=== PATIENT | male | born 1975 | race Caucasian/White ===

== ENCOUNTER → 2024-10-11 19:30 | Outpatient (REF) | payer OTHER, SELFPAY ==
--- OUTSIDE RECORDS SUMMARY | 2024-10-11 21:14 | XMS_ITS | Continuity of Care Document ---
Author Name [facility] Organization [facility] Care Team Providers Care [id number] Software Engineer Name Role Phone [facility] Unavailable Unavailable Problems Combined list of problems from Department of Defense and Veterans Affairs facilities. It does not include entries that were removed or entered in error. Problem Status Onset Date Problem Type Date of Resolution Comments Source Allergies Active Condition Jan 13 Entered By: PRASHANTH DOBSON Comment: Childhood asthma too. [place] Bilateral inguinal hernia, without mention of obstruction or gangrene Active Condition December 13, 2012 Entered By: CLARICE QUILES Comment: s/p repair age 1 [place] Dermatitis or Eczema Active Condition Jan 13, 2009 Entered By: PRASHANTH DOBSON Comment: Hands [place] Essential hypertension Active Condition [facility] Exposure to potentially hazardous substance Active Condition Oct 16, 2023 Entered By: JESSICA MARIE EN Alicia Comment: Connect Snomed Code to ICD 10 Code refer to note dated 06/02/23 [facility] Generalized anxiety disorder Active Condition [facility] Hypercholesterolemia Active Condition [facility] Hyperglycemia * (ICD-9-CM 790.29) Active Condition [facility] Hyperlipidemia Active Condition [facility] Hypertension [facility] Hypothyroidism Active Condition [facility] Knee Condition Active Condition Jan Entered By: PRASHANTH DOBSON Comment: Both knees from [place] [facility] Low back pain Active Condition [facility] Low Back Pain Active Condition Jan Entered By: PRASHANTH DOBSON Comment: Comes and goes. [place] Obesity Active Condition [facility] Paraesthesia Active Condition Mar 05, 2017 Entered By: CLARICE QUILES Comment: mri c-spine 02/24 no significant abnormalities and scanned into [facility] Rash and other nonspecific skin eruption Active Condition [facility] Sleep Apnea [facility] Tinea Active Condition Jan 13 Entered By: PRASHANTH DOBSON Comment: Multiple sites [facility] Tonsillectomy and Adenoidectomy (Under Age 12) Active Condition [facility] Vitamin D Deficiency (ICD-9-CM 268.9) [facility] Diagnosis: ICD-10-CM G89.29 Other chronic pain Active Diagnosis [facility] Diagnosis: ICD-10-CM F41.1 Generalized anxiety disorder Active Diagnosis [facility] Diagnosis: ICD-10-CM M54.50 Low back pain, unspecified Active Diagnosis [place] Diagnosis: ICD-10-CM E66.09 Other obesity due to excess calories Active Diagnosis [facility] Diagnosis: ICD-10-CM R05.3 Chronic cough [facility] Diagnosis: ICD-10-CM G47.30 Sleep apnea, unspecified Active Diagnosis [facility] Diagnosis: ICD-10-CM R06.83 Snoring Active [facility] Diagnosis: ICD-10-CM Z00.01 Encounter for general adult medical exam w abnormal findings Active Diagnosis [place] Diagnosis: ICD-10-CM I10 Essential (primary) hypertension Active Diagnosis [facility] Diagnosis: ICD-10-CM H52.03 Hypermetropia, bilateral Active Diagnosis [facility] Medications Combined list of outpatient medications from Department of Defense and Veterans Affairs facilities.Medications provided include 1) outpatient medications from the last 15 months, and 2) patient-reported medications. Medication Details Route Status Patient Instructions Prescription Expires Prescription Number Last Dispense Date Ordering Provider Order Date Order Qty Source ALBUTEROL 90MCG/ACTUA T (CFC-F) INHL,ORAL,8 .5GM DOSE COUNTER INHALE 2 PUFFS BY MOUTH FOUR TIMES DAILY NEEDED FOR ASTHMA ATTACK RESPIR ATORY (INHAL ATION) 08/27/2024 [id number] ANALIA QUILES 2023 1 [place] BUPROPION HCL 300MG 24HR TAB,SA TAKE ONE TABLET BY MOUTH ONCE DAILY ORAL ACTIVE ANALIA QUILES 2021 [place] CHOLECALCIF SANAZ 50MCG (2,000UNIT) TAB TAKE ONE TABLET BY MOUTH ONCE DAILY FOR VITAMIN SUPPLEME NTATION ORAL ACTIVE 05/08/2025 [id number] RA LAMINE ROACH 2023 100 [facility] FEXOFENADIN E HCL 180MG TAB TAKE ONE TABLET BY MOUTH ONCE DAILY ORAL ACTIVE ANALIA QUILES 2021 [place] FLUTICASONE PROPIONATE 50MCG/SPRAY SOLN,NASAL, 16GM INSTILL 2 SPRAYS INTO EACH NOSTRIL ONCE DAILY FOR NASAL IRRITATI ON/INFLA MMATION NASAL ACTIVE 05/04/2025 [id number] 4 MATTHEWRUBENLINARI O 2023 3 [facility] LEVOTHYROXI NE NA 175MCG TAB (SYNTHROID) TAKE TWO TABLETS BY MOUTH EVERY MORNING 30 MINUTES BEFORE BREAKFAS T FOR THYROID TAKE ON AN EMPTY STOMACH WITH A FULL GLASS OF WATER ORAL ACTIVE 05/04/2025 [id number] 4 MATTHEWJONIARI O 2023 180 [place] LEVOTHYROXI NE NA 175MCG TAB (SYNTHROID) TAKE TWO TABLETS BY MOUTH EVERY MORNING 30 MINUTES BEFORE BREAKFAS T ORAL ACTIVE NAALIA QUILES 2021 [place] LIDOCAINE 5% PATCH APPLY 1 PATCH TOPICALL Y ONCE DAILY NEEDED FOR NERVE PAIN (LEAVE PATCH ON FOR 12 HOURS, THEN REMOVE PATCH) TOPICA L ACTIVE 05/04/2025 [id number] 4 MATTHEWDARYL O 2023 90 [facility] MULTIVITAMI N W/MINERAL TAB TAKE BY MOUTH ONCE DAILY ORAL ACTIVE ANALIA QUILES 2020 [facility] OMEPRAZOLE 20MG CAP,EC TAKE ONE CAPSULE BY MOUTH EVERY MORNING 30 MINUTES BEFORE BREAKFAS T FOR GASTROES OPHAGEAL REFLUX DISEASE ORAL ACTIVE 09/07/2025 [id number] DECEM[place] P 2024 90 [facility] OTHER CAP/TAB TAKE ALLERGY MED BY MOUTH ONCE DAILY ORAL ACTIVE ANALIA QUILES 2020 [facility] OTHER CAP/TAB TAKE AMLODIPI NE 10MG/OLM ESARTAN 20MG BY MOUTH ONCE DAILY ORAL ACTIVE ANALIA QUILES 2023 [facility] SILDENAFIL CITRATE 100MG TAB TAKE ONE TABLET BY MOUTH ONCE DAILY NEEDED FOR ERECTILE DYSFUNCT ION TAKE 1 HOUR PRIOR TO SEXUAL ACTIVITY ORAL ACTIVE 05/04/2025 [id number] 4 MATTHEWRUBEN DENSONLINARI O 2023 18 [place] TRAZODONE HCL 100MG TAB TAKE ONE-HALF TABLET BY MOUTH AT BEDTIME NEEDED FOR INSOMNIA ASSOCIAT ED WITH DEPRESSI ON ORAL ACTIVE 05/04/2025 [id number] 4 MATTHEWRUBEN DENSONLINARI O 2023 90 [place] TRAZODONE HCL 100MG TAB TAKE ONE-HALF TABLET BY MOUTH AT BEDTIME NEEDED FOR INSOMNIA ASSOCIAT ED WITH DEPRESSI ON ORAL DISCONT INUED (EDIT) 09/03/2024 [id number] ANALIA QUILES 2023 15 [place] ZINC 50MG (FROM SULFATE) CAP TAKE 1 CAPSULE BY MOUTH ONCE DAILY ORAL ACTIVE ANALIA QUILES 2021 [place] Immunizations Combined list of available immunizations from the Department of Defense and Veterans Affairs facilities. Immunization Series Date Given Administered By Site Reaction Lot Number CVX Code Drug Toucher Up Status Comments Source INFLUENZA, SPLIT VIRUS, TRIVALENT, PF 2023 JAZ ROD RIGHT DELTO ID [id number] 140 complet ed [place] INFLUENZA, INJECTABLE, QUADRIVALENT, PRESERVATIVE FREE 2021 150 complet ed [facility] INFLUENZA, SEASONAL, INJECTABLE [address] t [facility] FLU,3 YRS (HISTORICAL) 2015 [address] complet ed [address] office (employer ) [facility] DTAP, UNSPECIFIED FORMULATION 2015 107 complet ed [place] FLU,3 YRS (HISTORICAL) 2015 88 complet ed [place] FLU,3 YRS (HISTORICAL) 2008 88 complet ed Site: Right Deltoid [place] Results Combined list of recent chemistry, hematology and other laboratory results from Department of Defense and Veterans Affairs, ranging from 15 months to all on record, depending upon the facility. Order Name Results Value Reference Range Date Interpretation Specimen Comments Source FAITH-65 Ab (Quest) GLUTAMATE DECARBOXYLA SE 65 AB [UNITS/VOLU ME] IN SERUM <5[IU] /mL 10/06 Specimen Type: SERUM Comment: REFERENCE RANGE: <5 IU/mL This test was performed using the GAD65 NALDO method, which is standardize d against the [facility] reference preparation 97/550. Test Performed by [employer], [employer] [facility], [address] [place] [address] Tre Bahena M.D., Ph.D., Director of Laboratorie s , CLIA [id number] TEST PERFORMED AT: , Ordering Provider: ORIN FLORES Report Released Date/Time: Jul 15, 2024 01:43 PM Reporting Lab: [facility] [place] [facility] [address] [facility] [address] Performing Lab: [facility] [place] [facility] [address] [address] [facility] THYROID T4 FREE(FT4) (WROX) THYROXINE (T4) FREE [MASS/VOLUM E] IN SERUM OR PLASMA 2.44 ng/dL 0.6 - 1.6 10/06 H Specimen Type: SERUM No comment entered. Ordering Provider: ORIN FLORES Report Released Date/Time: Jul 15, 2024 01:44 PM Reporting Lab: [facility] [place] [facility] [address] [facility] [address] Performing Lab: [facility] [place] [facility] [address] [facility] [address] [facility] VITAMIN B12 COBALAMIN (VITAMIN B12) [MASS/VOLUM E] IN SERUM OR PLASMA 373 pg/mL 200 - 900 10/06 Specimen Type: SERUM No comment entered. Ordering Provider: ORIN FLORES Report Released Date/Time: Jul 15, 2024 01:44 PM Reporting Lab: [facility] [place] [facility] [address] [facility] [address] Performing Lab: [facility] [place] [facility] [address] [facility] [address] [facility] TSH THYROTROPIN [UNITS/VOLU ME] IN SERUM OR PLASMA <0.06u [IU]/m L 0.35 - 5.00 10/06 L Specimen Type: SERUM No comment entered. Ordering Provider: ORIN FLORES Report Released Date/Time: Jul 15, 2024 01:44 PM Reporting Lab: [facility] [address] [facility] [address] Performing Lab: [facility] [address] [facility] [address] [facility] THYROID T4 FREE(FT4) (WROX) THYROXINE (T4) FREE [MASS/VOLUM E] IN SERUM OR PLASMA 1.02 ng/dL 0.6 - 1.6 07/12 Specimen Type: SERUM No comment entered. Ordering Provider: ORIN FLORES Report Released Date/Time: Jul 11, 2024 03:15 PM Reporting Lab: [facility] [address] [facility] [address] Performing Lab: [facility] [address] [facility] [address] [facility] BASIC METABOLIC PANEL (non-fast ing) UREA NITROGEN [MASS/VOLUM E] IN SERUM OR PLASMA 10 mg/dL 7 - 25 07/12 Specimen Type: SERUM No comment entered. Ordering Provider: ORIN FLORES Report Released Date/Time: Jul 11, 2024 03:14 PM Reporting Lab: [facility] [address] [facility] [address] Performing Lab: [facility] [address] [facility] [address] [facility] BASIC METABOLIC PANEL (non-fast ing) GLUCOSE [MASS/VOLUM E] IN SERUM OR PLASMA 126 mg/dL 65 - 100 07/12 H Specimen Type: SERUM No comment entered. Ordering Provider: ORIN FLORES Report Released Date/Time: Jul 11, 2024 03:14 PM Reporting Lab: [facility] [address] [facility] [address] Performing Lab: [facility] [address] [place] [address] [facility] BASIC METABOLIC PANEL (non-fast ing) SODIUM [MOLES/VOLU ME] IN SERUM OR PLASMA 137 mmol/L 135 - 145 07/12 Specimen Type: SERUM No comment entered. Ordering Provider: ORIN FLORES Report Released Date/Time: Jul 11, 2024 03:14 PM Reporting Lab: [facility] [address] [facility] [address] Performing Lab: [facility] [address] [facility] [address] [facility] BASIC METABOLIC PANEL (non-fast ing) POTASSIUM [MOLES/VOLU ME] IN SERUM OR PLASMA 4.0 mmol/L 3.5 - 5.0 07/12 Specimen Type: SERUM No comment entered. Ordering Provider: ORIN FLORES Report Released Date/Time: Jul 11, 2024 03:14 PM Reporting Lab: [facility] [address] [facility] [address] Performing Lab: [facility] [address] [facility] [address] [facility] BASIC METABOLIC PANEL (non-fast ing) CHLORIDE [MOLES/VOLU ME] IN SERUM OR PLASMA 102 mmol/L 100 - 110 07/12 Specimen Type: SERUM No comment entered. Ordering Provider: ORIN LFORES Report Released Date/Time: Jul 11, 2024 03:14 PM Reporting Lab: [facility] [address] [facility] [address] Performing Lab: [facility] [address] [address] [facility] BASIC METABOLIC PANEL (non-fast ing) CARBON DIOXIDE, TOTAL [MOLES/VOLU ME] IN SERUM OR PLASMA 21 meq/L 20 - 30 07/12 Specimen Type: SERUM No comment entered. Ordering Provider: ORIN FLORES Report Released Date/Time: Jul 11, 2024 03:14 PM Reporting Lab: [facility] [address] [facility] [address] Performing Lab: [facility] [address] [facility] [address] [facility] BASIC METABOLIC PANEL (non-fast ing) CREATININE [MASS/VOLUM E] IN SERUM OR PLASMA 1.00 mg/dL 0.50 - 1.40 07/12 Specimen Type: SERUM No comment entered. Ordering Provider: ORIN FLORES Report Released Date/Time: Jul 11, 2024 03:14 PM Reporting Lab: [facility] [address] [address] Performing Lab: [facility] [address] [address] [facility] BASIC METABOLIC PANEL (non-fast ing) GLOMERULAR FILTRATION RATE/1.73 SQ M.PREDICTED [VOLUME RATE/AREA] IN SERUM, PLASMA OR BLOOD BY CREATININE- BASED FORMULA (CKD-EPI 2020) >90mL/ min 60 07/12 Specimen Type: SERUM No comment entered. Ordering Provider: ORIN FLORES Report Released Date/Time: Jul 11, 2024 03:14 PM Reporting Lab: [facility] [address] [address] Performing Lab: [address] [address] [facility] TESTOSTER ONE, TOTAL (WHV) TESTOSTERON E [MASS/VOLUM E] IN SERUM OR PLASMA 215.95 ng/dL 220.00 - 892.00 07/12 L Specimen Type: SERUM No comment entered. Ordering Provider: MARI CASTRO Report Released Date/Time: May 03, 2024 02:57 PM Reporting Lab: [facility] [address] [address] Performing Lab: [facility] [address] [address] [facility] TSH THYROTROPIN [UNITS/VOLU ME] IN SERUM OR PLASMA 5.59 u[IU]/ mL 0.35 - 5.00 07/12 H Specimen Type: SERUM No comment entered. Ordering Provider: MARI CASTRO Report Released Date/Time: May 03, 2024 02:54 PM Reporting Lab: [facility] [address] [facility] [address] Performing Lab: [facility] [address] [facility] [address] [facility] VITAMIN D 25-OH (Therapy monitor) 25-HYDROXYV ITAMIN D3 [MASS/VOLUM E] IN SERUM OR PLASMA 32 ng/mL 30 - 100 07/12 Specimen Type: SERUM Comment: Vitamin D, 25-Hydroxy reports concentrati ons of two common forms, 25-OHD2 and 25-OHD3. 25-OHD3 indicates both endogenous production and supplementa tion. 25-OHD2 is an indicator of exogenous sources such as diet or supplementa tion. Therapy is based on measurement of Total 25-OHD, with levels <20 ng/mL indicative of Vitamin D deficiency, while levels between 20 ng/mL and 30 ng/mL suggest insufficien cy. Optimal levels are > or = 30 ng/mL. For additional information , please refer to http://educ ation.[facility] .GridBridge/faq/FA Q199 (This link is being provided for information al/ educational purposes only.) This test was developed and its analytical performance characteris tics have been determined by [place]. It has not been cleared or approved by the U.S. Food and Drug Administrat [employer]. This assay has been validated pursuant to the CLIA regulations and is used for clinical purposes. This test was developed and its analytical performance characteris tics have been determined by [place]. It has not been cleared or approved by the U.S. Food and Drug Administrat [employer]. This assay has been validated pursuant to the CLIA regulations and is used for clinical purposes. Test Performed by [facility], [place] [facility], [address] [place], [place] Tre Bahena M.D., Ph.D., Director of Laboratorie s , CLIA [id number] TEST PERFORMED AT: , Ordering Provider: MARI CASTRO Report Released Date/Time: May 03, 2024 02:46 PM Reporting Lab: [facility] [address] [facility] [address] Performing Lab: [facility] [address] [address] [facility] VITAMIN D 25-OH (Therapy monitor) 25-HYDROXYV ITAMIN D3 [MASS/VOLUM E] IN SERUM OR PLASMA 32 ng/mL 07/12 Specimen Type: SERUM Comment: Vitamin D, 25-Hydroxy reports concentrati ons of two common forms, 25-OHD2 and 25-OHD3. 25-OHD3 indicates both endogenous production and supplementa tion. 25-OHD2 is an indicator of exogenous sources such as diet or supplementa tion. Therapy is based on measurement of Total 25-OHD, with levels <20 ng/mL indicative of Vitamin D deficiency, while levels between 20 ng/mL and 30 ng/mL suggest insufficien cy. Optimal levels are > or = 30 ng/mL. For additional information , please refer to http://educ ation.[employer] .com/faq/FA Q199 (This link is being provided for information al/ educational purposes only.) This test was developed and its analytical performance characteris tics have been determined by [place] [place]. It has not been cleared or approved by the U.S. Food and Drug Administrat ion. This assay has been validated pursuant to the CLIA regulations and is used for clinical purposes. This test was developed and its analytical performance characteris tics have been determined by [place], [place]. It has not been cleared or approved by the U.S. Food and Drug Administrat ion. This assay has been validated pursuant to the CLIA regulations and is used for clinical purposes. Test Performed by [facility], [place], [address] [place], [place] Tre Bahena M.D., Ph.D., Director of Laboratorie s , CLIA [id number] TEST PERFORMED AT: , Ordering Provider: MARI CASTRO Report Released Date/Time: May 03, 2024 02:46 PM Reporting Lab: [facility] [address] [facility] [address] Performing Lab: [facility] [address] [address] [facility] VITAMIN D 25-OH (Therapy monitor) CALCIFEROL (VIT D2) [MASS/VOLUM E] IN SERUM OR PLASMA <4ng/m L 07/12 Specimen Type: SERUM Comment: Vitamin D, 25-Hydroxy reports concentrati ons of two common forms, 25-OHD2 and 25-OHD3. 25-OHD3 indicates both endogenous production and supplementa tion. 25-OHD2 is an indicator of exogenous sources such as diet or supplementa tion. Therapy is based on measurement of Total 25-OHD, with levels <20 ng/mL indicative of Vitamin D deficiency, while levels between 20 ng/mL and 30 ng/mL suggest insufficien cy. Optimal levels are > or = 30 ng/mL. For additional information , please refer to http://educ ation.[facility] .com/faq/FA Q199 (This link is being provided for information al/ educational purposes only.) This test was developed and its analytical performance characteris tics have been determined by [place]. It has not been cleared or approved by the U.S. Food and Drug Administrat ion. This assay has been validated pursuant to the CLIA regulations and is used for clinical purposes. This test was developed and its analytical performance characteris tics have been determined by [place], [place]. It has not been cleared or approved by the U.S. Food and Drug Administrat [employer]. This assay has been validated pursuant to the CLIA regulations and is used for clinical purposes. Test Performed by [facility], [place], [address] [place], [place] Tre Bahena M.D., Ph.D., Director of Laboratorie s , CLIA [id number] TEST PERFORMED AT: , Ordering Provider: MARI CASTRO Report Released Date/Time: May 03, 2024 02:46 PM Reporting Lab: [facility] [place] [facility] [address] [facility] [address] Performing Lab: [facility] [place] [facility] [address] [facility], [address] [place] [address] [place] [facility] HEMOGLOBI N A1C PANEL HEMOGLOBIN A1C/HEMOGLO BIN.TOTAL IN BLOOD BY HPLC 5.8 4.0 - 5.6 04/30 H Specimen Type: BLOOD Comment: Values obtained from A1C measurement s can vary. For atypical A1C assays, a reported value of 7.0 could actually be between 6.72 and 7.28 if measured by a reference method. A reported value of 9.0 could actually be between 8.73 and 9.27. Ref: http://www. ngsp.org/[place] Pdata.asp Ordering Provider: BRIT QUILES Report Released Date/Time: Sep 03, 2023 02:55 PM Reporting Lab: [facility] [address] [facility] [address] Performing Lab: [facility] [address] [facility] [address] [facility] Vital Signs Combined list of inpatient and outpatient Vital Signs from Department of Defense and Veterans Affairs, ranging from 12 months to all on record, depending upon the facility. Vital Sign Value Date Comments Source SYSTOLIC BLOOD PRESSURE 138 09/06/19 25 14:43:00 [facility] [place] [facility] DIASTOLIC BLOOD PRESSURE 78 025 14:43:00 [facility] [place] [facility] PULSE OXIMETRY 98 09/06/2024 14:43:00 [facility] [place] [facility] WEIGHT 305.2 09/06/2024 14:43:00 [facility] [place] [facility] BMI 43 kg/m2 09/06/2024 14:43:00 [facility] PAIN 0 09/06/2024 14:43:00 [facility] HEIGHT 71 09/06/2024 14:43:00 [facility] PULSE 59 09/06/2024 14:43:00 [facility] RESPIRATION 20 09/06/2024 14:43:00 [facility] SYSTOLIC BLOOD PRESSURE 143 07/15/20 24 12:53:31 [facility] DIASTOLIC BLOOD PRESSURE 83 024 12:53:31 [facility] PULSE OXIMETRY 96 07/15/2024 12:53:31 [facility] WEIGHT 309 07/15/2024 12:53:31 [facility] BMI 43 kg/m2 07/15/2024 12:53:31 [facility] PAIN 4 07/15/2024 12:53:31 [facility] HEIGHT 71 07/15/2024 12:53:31 [facility] TEMPERATURE 98.1 07/15/2024 12:53:31 [facility] PULSE 77 07/15/2024 12:53:31 [facility] RESPIRATION 16 07/15/2024 12:53:31 [facility] SYSTOLIC BLOOD PRESSURE 130 05/03/20 24 14:20:53 [facility] DIASTOLIC BLOOD PRESSURE 89 024 14:20:53 [facility] PULSE OXIMETRY 96 05/03/2024 14:20:53 [facility] WEIGHT 324.6 05/03/2024 14:20:53 [facility] BMI 45 kg/m2 05/03/2024 14:20:53 [facility] PAIN 3 05/03/2024 14:20:53 [facility] HEIGHT 71 05/03/2024 14:20:53 [facility] TEMPERATURE 95.6 05/03/2024 14:20:53 [facility] PULSE 61 05/03/2024 14:20:53 [facility] RESPIRATION 22 05/03/2024 14:20:53 [facility] Encounters Combined list of: 1) Encounters from [facility] Affairs facilities going backup to the last 18 months, not all VA inpatient encounters are included; 2) Encounters from the Department of [facility] facilities going backup to 280 months. Location Location Details Encounter Type Encounter Number Reason For Visit Attending Provider ADM Date DC Date Status Disposition Source [facility] Outpatient Encounter [id number] 04/23 [facility] DETERMINE REFRACTIVE [place] [id number] Diagnos is: ICD-10- CM H52.03 Hyperme tropia, bilater al NGOC CASEY 04/29 [facility] Outpatient Encounter [id number] 06/02 [facility] Outpatient Encounter [id number] JOANNE QUILES 06/02 [facility] [place] O/P EST MOD 30-39 MIN [id number] Diagnos is: ICD-10- CM I10 Essenti al (primar y) hyperte nsion JOANNE QUILES 06/02 [place] [facility] Outpatient Encounter [id number] 06/04 [facility] Out[facility] Encounter [id number] 06/05 [facility] [place] Outpatient Encounter [id number] 06/09 [place] [facility] Outpatient Encounter [id number] 07/02 [facility] Out[facility] Encounter [id number] 07/14 [facility] Out[facility]counter [id number] 08/01 [facility] Out[facility] Encounter [id number] 08/20 [facility] [place] Out[place] Encounter [id number] 08/20 [place]/OP EST MAY X REQ PHY/QHP [id number] Diagnos is: ICD-10- CM I10 Essenti al (primar y) hyperte nsmarisabel ERIKA MENON 08/22 [place] O/P EST MOD 30 MIN [id number] Diagnos is: ICD-10- CM I10 Essenti al (primar y) hyperte nsion JOANNE QUILES MOHAN 09/03 [place] En[place] [id number] 09/18 [place] En[place] [id number] 09/19 [place] [facility] Out[facility] Encounter [id number] BEVERLEY MENARD 10/13 [facility] Out[facility] Encounter [id number] 10/15 [facility] Out[facility] Encounter [id number] 10/21 [facility] Out[facility] Encounter [id number] 11/13 [facility] Out[facility] Encounter [id number] 11/13 [facility] Out[facility] Encounter [id number] 11/27 [facility] Out[facility] Encounter [id number] MG HUERTAS 11/27 [facility] Out[facility] Encounter [id number] 12/09 [facility] Out[facility] Encounter [id number] 12/09 [facility] Out[facility] Encounter [id number] 12/16 [facility] Out[facility] Encounter [id number] 12/18 [facility] Out[facility] Encounter [id number] 12/28 [facility] [place] Out[place] Encounter [id number] 03/31 [facility] Out[facility] Encounter [id number] 03/31 [facility] [place] O/P EST MOD 30 MIN [id number] Diagnos is: ICD-10- CM Z00.01 Encount er for general adult medical exam w Alicia Houser 05/03 [facility] Out[facility] Encounter [id number]/07 [facility]counter [id number] 06/04 [facility] Out[facility] Encounter [id number] 1.06/08 [facility] [place] PSYTX W PT 60 MINUTES [id number] Diagnos is: ICD-10- CM G89.29 Other chronic pain BEVERLEY MENARD K 06/17 [facility] [place] [facility] Encounter [id number] 1.06/17 [facility] [place] Out[place] [facility]counter [id number] 06/24 [place] [facility] Out[facility] Encounter [id number] 06/28 [facility] [place] PSY[place] W PT 45 MINUTES [id number] Diagnos is: ICD-10- CM G89.29 Other chronic pain BEVERLEY MENARD 07/01 [place] [facility] Outpatient Encounter [id number] 07/13 [facility] Outpatient Encounter [id number] 07/15 [facility] Outpatient Encounter [id number] 1.07/21 [facility] [place] SLEEP STUDY UNATT&RESP EFFT [id number] Diagnos is: ICD-10- CM R06.83 Snoring SAAD,FREDE MARYANN 07/22 [place] W PT 45 MINUTES [id number] Diagnos is: ICD-10- CM G89.29 Other chronic pain BEVERLEY MENARD K 07/22 [place]NAG[place] [id number] 1BY. 22 Diagnos is: ICD-10- CM F41.1 General ized anxiety disorde r GENEVA,W DANIEL 07/27 [place] PSY[place] W PT 45 MINUTES [id number] Diagnos is: ICD-10- CM M54.50 Low back pain, unspeci fied BEVERLEY MENARD K 07/29 [place] [facility] UNATT&RESP EFFT [id number] Diagnos is: ICD-10- CM G47.30 Sleep apnea, unspeci fied CURIOSO-UY ,YONI 08/04 [facility] Out[facility] Encounter [id number] 08/09 [facility] Out[facility] Encounter [id number] 08/09 [facility] Out[facility] Encounter [id number] Diagnos is: ICD-10- CM R05.3 Chronic cough WALDRON,CHIQUIS [employer]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 08/10 [facility] Out[facility] Encounter [id number] 08/12 [facility] [place] MTMS BY PHARM ADDL 15 MIN [id number] Diagnos is: ICD-10- CM E66.09 Other obesity due to excess calorie s ALONSO VAZQUEZ 08/12 [place] PSY[place] W PT 45 MINUTES [id number] Diagnos is: ICD-10- CM M54.50 Low back pain, unspeci fied BEVERLEY MENARD 08/12 [place] [id number] Diagnos is: ICD-10- CM F41.1 General ized anxiety disorde r David BEAN DANIEL 08/12 [place] [facility] Out[facility] Encounter [id number] 08/24 [facility] Out[facility] Encounter [id number] 08/31 [facility] [place] PSYTX W PT 45 MINUTES [id number] Diagnos is: ICD-10- CM G89.29 Other chronic pain BEVERLEY MENARD 09/03 [place] [facility] Outpatient Encounter [id number] 09/06 [facility] [place] Outpatient Encounter [id number] DECEMBER,VANESSA TOUSSAINT P 09/06 [facility] [place] Out[place] En[place] [id number] 09/10 [facility] [place] PSY[place] W PT 45 MINUTES [id number] Diagnos is: ICD-10- CM G89.29 Other chronic pain BEVERLEY MENARD K 09/13 [facility] [place] PSY[place] W PT 45 MINUTES [id number] Diagnos is: ICD-10- CM G89.29 Other chronic pain BEVERLEY MENARD 09/17 [facility] [place] [facility] Out[facility] Encounter [id number] 10/01 [facility] [place] Outpatient Encounter [id number] 10/06 [facility] [place] [facility] Out[facility] Encounter [id number] 10/06 [facility] Out[facility] Encounter [id number] 10/09 [facility] Social History Combined list of available smoking, tobacco, and other social history from Department of Defense and Veterans Affairs facilities. Social History Type Response Date Comment Source Tobacco smoking status [facility] NEVER USED 05/03/2024 [facility] History of tobacco use [facility] NEVER US[facility] 06/02/2023 [facility] History of tobacco use [facility] NEVER USED 12/11/2021 [facility] History of tobacco use [facility]AC[facility] NEVER USED 01/10/2021 [facility] History of tobacco use LIFETIME NON-TOBACCO USER 09/09/2017 [facility] History of tobacco use CURRENT SMOKER 01/22/2017 [place] 2-3 per yr [facility] History of tobacco use LIFETIME NON-TOBACCO USER 09/06/2015 [facility] History of tobacco use LIFETIME NON-TOBACCO USER 01/13/2009 [facility] Plan of Care List of future care activities from Department of [facility] Affairs facilities. Additional future care activities may be listed in the Assessment and Plan section. Date/Time Care Activity Care Activity Detail Facili ty 10/13/2024 AMBULATORY - MEDICINE [facility]AT[facility] 11/11/2024 AMBULATORY - MEDICINE AMBULATORY - MEDICI [facility] [place] [facility] 12/13/2024 AMBULATORY - MEDICINE AMBULATORY - MEDICI [facility] [place] [facility] 10/06/2024 Laboratory - Light Out Examiner ry Order ISLET CELL Ab SCREEN w/REFLEX TO TITER BLOOD (SST-SERUM) [facility] [place] 10/13/2024 Laboratory - Light Out Examiner ry Order THYROID T4 FREE(FT4) (WROX) BLOOD (SST-SERUM) [facility] [place] [facility] 10/13/2024 Laboratory - Light Out Examiner ry [facility]
--- OUTSIDE RECORDS SUMMARY | 2024-10-11 21:14 | XMS_ITS ---
Author Name [facility] [place] [facility] [place] Address [address] [place] [address] Care Team Providers Care Iv Technician Name Role Phone OSIEL ROACH Primary Care Provider Unavail le Insurance Providers: All historical and current Section Date Range: From patient's date of to the date document was created. This section includes the names of all active insurance providers for the patient. Insurance Provider Type of Coverage Plan Name Start of Policy Coverage End of Policy Coverage Group Number Member ID Insurance Provider's Telephone Number Policy Blankenship's Name Patient's Relationship to Policy Blankenship CAN [place] CT FEDERAL PREFERRED PROVIDER ORGANIZAT ION (PPO) BASIC FAMIL Y Aug 11, 2010 [id number] DONA BRADLEY Walter PATIENT BCBS [place] F[place] PREFERRED PROVIDER ORGANIZAT ION (PPO) BASIC FAMIL Y Aug 11, 2010 [id number] DONA BRADLEY Walter PATIENT [employer] FEPRX PLAN PRESCRIPT ION CAREM ARK FEPRX Aug 11, 2010 [id number] DONA BRADLEY PATIENT [employer]-F EP BCBS PRESCRIPT ION FEP CAREM ARK Aug 11, 2010 [id number] MIRNADONA Watson PATIENT Selected Encounter This section includes the information on record at CT for the Encounter. Date/Time Encounter Type Encounter Description Reason Pro vider Source Jul 15, 2024 01:00 PM Outpatient Encounter ENDOCRINOLOGY IHE Encounter Template Text not used by CT Plan of Treatment: Future Appointments (+ 6 months) and Future Tests (+/- 45 days) The Plan of Treatment section includes future care activities for the [facility] This section includes future appointments and future orders which are active, pending or scheduled. Future Appointments This section includes appointments that were scheduled to occur 6 months from the date of the Encounter, up to a maximum of 20 appointments. The data comes from all [facility]. Appointment Date/Time Appointment Type Appointme nt Facility Name Jul 22, 2024 11:00 AM AMBULATORY - MEDICINE [facility] Jul 22, 2024 01:30 PM AMBULATORY - PSYCHIATRY [facility] Jul 27, 2024 02:00 PM AMBULATORY - PSYCHIATRY [facility] Jul 29, 2024 02:00 PM AMBULATORY - PSYCHIATRY [facility] Aug 10, 2024 01:30 PM AMBULATORY - MEDICINE [facility] [place] [facility] Aug 12, 2024 02:00 PM AMBULATORY - MEDICINE [facility] [place] [facility] Aug 12, 2024 02:30 PM AMBULATORY - PSYCHIATRY [facility] Aug 12, 2024 03:00 PM AMBULATORY - PSYCHIATRY [facility] Aug 23, 2024 01:00 PM [facility] Sep 03, 2024 02:00 PM AMBULATORY - PSYCHIATRY [facility] Sep 06, 2024 02:30 PM AMBULATORY - MEDICINE [facility] [place] [facility] Sep 10, 2024 02:00 PM AMBULATORY - PSYCHIATRY [facility] Sep 13, 2024 01:00 PM AMBULATORY - PSYCHIATRY [facility] Sep 17, 2024 02:00 PM AMBULATORY - PSYCHIATRY [facility] Oct 06, 2024 02:00 PM AMBULATORY - MEDICINE [facility] [place] [facility] Oct 13, 2024 02:30 PM AMBULATORY - MEDICINE [facility] [place] [facility] Nov 11, 2024 11:00 AM AMBULATORY - MEDICINE [facility] [place] [facility] December 13, 2024 02:00 PM AMBULATORY - MEDICINE [facility] [place] [facility] Active, Pending, and Scheduled Orders This section includes a listing of several types of active, pending, and scheduled orders, including clinic medications orders, diagnostic test orders, procedure orders and consult orders; where the start date of the order is 45 days before the date of the Encounter or 45 days after the date of theEncounter. The data comes from all CT treatment facilities. Test Date/Time Test Type Test Details Facility Name Aug 13, 2024 12:40 PM Consult Order [facility]-SLEEP STUDY Cons [facility] Aug 25, 2024 12:00 AM Laboratory - Chemi stry Order OCCULT BLOOD FIT X1 SCREEN (MFP ONLY) STOOL FECES SP [facility] Lab Results: +/- 30 days of the encounter This section includes the Chemistry and Hematology Lab Results on record with CT for the patient. Radiology Reports and Pathology Reports are provided separately, in subsequent sections. Lab Results This section contains the Chemistry/Hematology Results that were resulted 30 days before or 30 daysafter the date of the Encounter. Date/Time Source Result Type Result - Unit Interpretation Reference Range Comment Jul 12, 2024 09:37 AM [facility] THYROID T4 FREE(FT4) (WROX) Specimen Type: SERUM No comment entered. Ordering Provider: NEISHA FLORES Report Released Date/Time: Jul 11, 2024 03:15 PM Reporting Lab: [facility] [address] [address] Performing Lab: [facility] [address] [facility] [address] THYROID T4 FREE(FT4) (WROX) 1.02 ng/dL 0.6-1.6 Jul 12, 2024 09:37 AM [facility] BASIC METABOLIC PANEL (non-fasting) Specimen Type: SERUM No comment entered. Ordering Provider: NEISHA FLORES Report Released Date/Time: Jul 11, 2024 03:14 PM Reporting Lab: [facility] [address] [address] Performing Lab: [facility] [address] [address] UREA NITROGEN 10 mg/dL 7-25 GLUCOSE 126 mg/dL H 65-100 SODIUM 137 mmol/L 135-145 POTASSIUM 4.0 mmol/L 3.5-5.0 CHLORIDE 102 mmol/L 100-110 CO2 21 meq/L 20-30 CREATININE, Serum 1.00 mg/dL 0.50-1.40 eGFR(CKD-EP I 2020) >90 mL/min >60 Jul 12, 2024 09:37 [facility] TESTOSTERONE, TOTAL (WHV) Specimen Type: SERUM No comment entered. Ordering Provider: IVAN CASTRO IO Report Released Date/Time: May 03, 2024 02:57 PM Reporting Lab: [facility] [address] [address] Performing Lab: [facility] [address] TESTOSTERON E, TOTAL (WHV) 215.95 ng/dL L 220.00-892 .00 Jul 12, 2024 09:37 AM [facility] TSH Specimen Type: SERUM No comment entered. Ordering Provider: IVAN CASTRO IO Report Released Date/Time: May 03, 2024 02:54 PM Reporting Lab: [facility] [address] [facility] [address] Performing Lab: [facility] [address] TSH 5.59 u[IU]/mL H 0.35-5.00 Jul 12, 2024 09:37 AM [facility] VITAMIN D 25-OH (Therapy monitor) Specimen Type: SERUM Comment: Vitamin D, 25-Hydroxy reports concentrations of two common forms, 25-OHD2 and 25-OHD3. 25-OHD3 indicates both endogenous production and supplementation. 25-OHD2 is an indicator of exogenous sources such as diet or supplementation. Therapy is based on measurement of Total 25-OHD, with levels <20 ng/mL indicative of Vitamin D deficiency, while levels between 20 ng/mL and 30 ng/mL suggest insufficiency. Optimal levels are > or = 30 ng/mL. For additional information, please refer to http://education. [employer]. [employer]/faq/LUT216 (This link is being provided for informational/ educational purposes only.) This test was developed and its analytical performance characteristics have been determined by [employer], [place]. It has not been cleared or approved by the U.S. Food and Drug Administration. This assay has been validated pursuant to the CLIA regulations and is used for clinical purposes. This test was developed and its analytical performance characteristics have been determined by [employer] [place], [place]. It has not been cleared or approved by the U.S. Food and Drug Administration. This assay has been validated pursuant to the CLIA regulations and is used for clinical purposes. Test Performed by [facility], [employer] [facility], [address] [place], [place] Tre Bahena M.D., Ph.D., Director of Laboratories , CLIA [id number] TEST PERFORMED AT: , Ordering Provider: IVAN CASTRO Report Released Date/Time: May 03, 2024 02:46 PM Reporting Lab: [facility] [employer] [facility] [address] [facility] [address] Performing Lab: [facility] [address] [address] VITAMIN D, 25-OH, TOTAL 32 ng/mL 30-100 VITAMIN D, 25-OH, D3 32 ng/mL VITAMIN D, 25-OH, D2 <4 ng/mL Vital Signs: All taken on the encounter date This section contains inpatient and outpatient Vital Signs collected on the date of the Encounter. Date/Time Temperature Pulse Blood Pressure Respiratory Rate SP02 Pain Height Weight Body Mass Index Source Jul 15, 2024 12:53 PM 98.1 77 143/83 16 [address] [facility] [facility] Social History: Smoking Status (Most current) and Tobacco Use (All prior to encounter date) This section includes the most current, and the historical, smoking and tobacco- related health factors from the CT facility where the Encounter took place. Current Smoking Status This section includes the most current smoking, or tobacco-related health factor, from the [place] facility where the Encounter took place. Date/Time Current Smoking Status Comment Facil ity Jun 02, 2023 11:40 AM [facility] NEVER USED [facility] Tobacco Use History This section includes a history of the smoking, or tobacco-related health factors, that were collected on or before the date of the Encounter. The data comes from the [place] facility where the Encounter took place. Date/Time Smoking Status/Tobacco Use Comment Samy corey December 11, 2021 03:10 PM [facility] NEVER USED [facility] Encounter Notes: All associated encounter notes This section contains the clinical notes associated to the Encounter. Date/Time Encounter Note(s) Provider Source Jul 15, 2024 07:56 AM ENDOCRINOLOGY CONSULT: LOCAL TITLE: CONSULT REPORT/ENDOCRINE STANDARD TITLE: ENDOCRINOLOGY CONSULT DATE OF NOTE: JUL 15, 2024@07:56 ENTRY DATE: JUL 15, 2024@07:56:13 AUTHOR: NEISHA FLORES COSIGNER: URGENCY: STATUS: COMPLETED CC: Hypothyroidism HPI: Reason For Request: 49-year-old patient with hypothyroidism; high requirements for supplements. I suspect other endocrine related although there are some signs of prediabetes/hyperlipidemia. Ordering testosterone levels, weight management consult for untreated obstructive sleep apnea. Patient will very much benefit from your insights and suggestions for management. Hypothyroidism dx age 25. Very fluctuating TSH levels by his hx. Until a month ago, pt had been taking levothyroxine with his other medications. This included an MVI, and zinc. Not taking extra iron or calcium, and advised about interaction with absorption with minerals. Currently taking levothyroxine in AM fasting and other meds at lunch. Currently taking fasting and waiting to eat over 30 min. Of note, testing for RACHEL planned for next week. Taking levothyroxine 175 mcg TWO tabs daily. Fatigue: yes Weight gain: stable currently Temperature intolerance cold intolerance Constipation no No hyperpigmentation, HTN is present not checked but recently checked on vitamin B12 Jul 12 2024GLUCOSE 126 H mg/dL 65 - 100 fasting. had hyperglycemia for about a year No viteligo Family Hx: Thyroid disease: mother with hypothyroidism Rheumatoid arthritis: Systemic lupus or other collagen vascular disease Mother has SLE DM: no type 1DM Adrenal insufficiency: no Vit B12 deficiency: none known Viteligo: no Gluten intolerance: no Jul 12 May 30 January 05 Reference 2023 2023 2022 2020 TSH 5.59 H > 100.00 0.15 L uIU/mL .35 - 5 FT4 1.02 ng/dL .6 - 1.6 SERUM Sep 05 Jan 22 Sep 20 Jan 20 Reference 2017 2016 2013 2012 TSH 57.52 H > 100.00 >100.00 H 88.26 H uIU/mL .35 - 5 PHx: Active problems - Computerized Problem List is the source for the followin. Exposure to potentially hazardous substance 2. Hyperlipidemia 3. Hypertension 4. Generalized anxiety disorder 5. Paraesthesia 6. Hypothyroidism 7. Low back pain 8. Essential hypertension 9. Hyperglycemia * 10. Vitamin D Deficiency 11. Tonsillectomy and Adenoidectomy (Under Age 12) 12. Bilateral inguinal hernia, without mention of obstruction or gangrene 13. Allergies 14. Hypothyroidism 15. Rash and other nonspecific skin eruption 16. Knee Condition 17. Obesity 18. Low Back Pain 19. Tinea 20. Dermatitis or Eczema 21. Sleep Apnea 22. Hypercholesterolemia Active Outpatient Medications (including Supplies): ALBUTEROL 90MCG (CFC-F) 200D ORAL INHL INHALE 2 PUFFS BY ACTIVE MOUTH FOUR TIMES DAILY NEEDED Indication: FOR ASTHMA ATTACK CHOLECALCIF 50MCG (D3-2,000UNIT) TAB TAKE ONE TABLET BY ACTIVE MOUTH ONCE DAILY FOR VITAMIN SUPPLEMENTATION Indication: FOR VITAMIN D DEFICIENCY FLUTICASONE PROP 50MCG 120D NASAL INHL INSTILL 2 SPRAYS ACTIVE INTO EACH NOSTRIL ONCE DAILY Indication: FOR NASAL IRRITATION/INFLAMMATION LEVOTHYROXINE NA (SYNTHROID) 175MCG TAB TAKE TWO TABLETS ACTIVE BY MOUTH EVERY MORNING 30 MINUTES BEFORE BREAKFAST TAKE ON AN EMPTY STOMACH WITH A FULL GLASS OF WATER Indication: FOR THYROID LIDOCAINE 5% PATCH APPLY 1 PATCH TOPICALLY ONCE DAILY ACTIVE NEEDED (LEAVE PATCH ON FOR 12 HOURS, THEN REMOVE PATCH) Indication: FOR NERVE PAIN SILDENAFIL CITRATE 100MG TAB TAKE ONE TABLET BY MOUTH ONCE ACTIVE DAILY NEEDED TAKE 1 HOUR PRIOR TO SEXUAL ACTIVITY Indication: FOR ERECTILE DYSFUNCTION TRAZODONE HCL 100MG TAB TAKE ONE-HALF TABLET BY MOUTH AT ACTIVE BEDTIME NEEDED Indication: FOR INSOMNIA ASSOCIATED WITH DEPRESSION Non-VA BUPROPION HCL 300MG 24HR SA TAB 300MG BY MOUTH ONCE ACTIVE DAILY Non-VA FEXOFENADINE HCL 180MG TAB 180MG BY MOUTH ONCE ACTIVE DAILY Non-VA LEVOTHYROXINE NA (SYNTHROID) 175MCG TAB 350MCG BY ACTIVE MOUTH EVERY MORNING 30 MINUTES BEFORE BREAKFAST Non-VA MULTIVITAMIN W/MINERAL TAB BY MOUTH ONCE DAILY ACTIVE Non-VA OTHER CAP/TAB ALLERGY MED BY MOUTH ONCE DAILY ACTIVE Non-VA OTHER CAP/TAB AMLODIPINE 10MG/OLMESARTAN 20MG BY ACTIVE MOUTH ONCE DAILY Non-VA ZINC 50MG (FROM SULFATE) CAP 50MG BY MOUTH ONCE ACTIVE DAILY Social HX: Lives with and children Occupation: Maintenance for Post [employer] ROS: Generally no cough or fever PE Affect: pleasant appropriate Thyroid normal Viteligo: no hyperpigmentation no Neurologic: Tremor: no A: Hypothyroidism P: The pathophysiology of hypothyroidism was explained to the patient, also the prognosis, treated and untreated. The rationale for treatment and ongoing monitoring was reviewed, including prevention of excessive weight gain, fatigue, progression of other symptoms, and serious outcomes due to severe untreated hypothyroidism. The increased association with hyperthyroidism with other conditions in the patient or in relatives such as diabetes, B12 deficiency, adrenal insufficiency, early menopause, and other conditions was discussed, with warning signs. Interference with levothyroxine absorption from other medications may have been very important in requirement for a very high dose. He will continue to separate levothyroxine from other medication. Will check TSH and FT4 in one month, and frequently until stable. It has been a month since he started taking levothyroxine separately from other meds. He agrees to a medication organizer. Obesity: interested in teleMOVE Reviewed motivations. Feels better since making some major dietary changes, avoiding sugar. is supportive. Labs: Vitamin B12 ICA and FAITH 63 TSH FT4 in one month TSH FT4 prior to next visit Three months FTF Medication Reconciliation: Outpatient: Has the patient been taking medications as documented in the EMLR? YES: The patient has been taking medications as documented in the EMLR. Essential Medication List for Review used to complete this medication reconciliation. INCLUDED IN THIS LIST: Alphabetical list of active outpatient prescriptions dispensed from this [facility] (local) and dispensed from another [place] or DoD facility (remote) as well as inpatient orders (local, pending and active), local clinic medications, locally documented non-VA medications, and local prescriptions that have or been discontinued in the past 90 days. - All changes in medications, including all non-VA/Herbal/OTC medications were entered into CPRS. - If there were any medications the patient should no longer take, they were discontinued. - The patient/caregiver was instructed to update this list, discard old lists, and take this list to the next appointment, whether with a VA or non-VA provider. JLV Link Data on this list may not be complete. Please check JLV. Allergies/ADRs (Tool #5) FACILITY ALLERGY/ADR -------- No Remote Allergy/ADR Data available for this patient [facility] [place] [facility] No Known Allergies [facility] (Tool #1) INCLUDED IN THIS LIST: Alphabetical list of active outpatient prescriptions dispensed from this [facility] (local) and dispensed from another VA or DoD facility (remote) as well as inpatient orders (local pending and active), local clinic medications, locally documented non-VA medications, and local prescriptions that have or been discontinued in the past 90 days. Non-VA Meds Last Documented On: Sep 03, 2023 NOTE The display of VA prescriptions dispensed from another VA or DoD facility (remote) is limited to active outpatient prescription entries matched to National Drug File at the originating site and may not include some items such as investigational drugs, compounds, etc. NOT INCLUDED IN THIS LIST: Medications self-entered by the patient into personal health records (i.e. [employer]) are NOT included in this list. Non-VA medications documented outside this CT, remote inpatient orders (regardless of status) and remote clinic medications are NOT included in this list. The patient and provider must always discuss medications the patient is taking, regardless of where the medication was dispensed or obtained. OUTPT ALBUTEROL 90MCG (CFC-F) 200D ORAL INHL (Status = Active) INHALE 2 PUFFS BY MOUTH FOUR TIMES DAILY NEEDED FOR ASTHMA ATTACK Rx# [id number] Last Released: 09/01/23 Qty/Days Supply: 09/09 Rx Expiration Date: 08/27/24 Refills Remainin Indication: FOR ASTHMA ATTACK Non-VA BUPROPION HCL 300MG 24HR SA TAB TAKE ONE TABLET BY MOUTH ONCE DAILY OUTPT CHOLECALCIF 50MCG (D3-2,000UNIT) TAB (Status = Active) TAKE ONE TABLET BY MOUTH ONCE DAILY FOR VITAMIN SUPPLEMENTATION Rx# [id number] Last Released: 05/10/24 Qty/Days Supply: 100 Rx Expiration Date: 05/08/25 Refills Remainin Indication: FOR VITAMIN D DEFICIENCY Non-VA FEXOFENADINE HCL 180MG TAB TAKE ONE TABLET BY MOUTH ONCE DAILY OUTPT FLUTICASONE PROP 50MCG 120D NASAL INHL (Status = Discontinued) INSTILL 2 SPRAYS INTO EACH NOSTRIL ONCE DAILY FOR NASAL IRRITATION/INFLAMMATION Rx# [id number] Last Released: 06/04/23 Qty/Days Supply: 09/09 Rx Expiration Date: 06/02/24 Refills Remainin Indication: FOR NASAL IRRITATION/INFLAMMATION OUTPT FLUTICASONE PROP 50MCG 120D NASAL INHL (Status = Active) INSTILL 2 SPRAYS INTO EACH NOSTRIL ONCE DAILY FOR NASAL IRRITATION/INFLAMMATION Rx# [id number] Last Released: 05/04/24 Qty/Days Supply: Rx Expiration Date: 05/04/25 Refills Remainin Indication: FOR NASAL IRRITATION/INFLAMMATION Non-VA LEVOTHYROXINE NA (SYNTHROID) 175MCG TAB TAKE TWO TABLETS BY MOUTH EVERY MORNING 30 MINUTES BEFORE BREAKFAST OUTPT LEVOTHYROXINE NA (SYNTHROID) 175MCG TAB (Status = Active) TAKE TWO TABLETS BY MOUTH EVERY MORNING 30 MINUTES BEFORE BREAKFAST FOR THYROID TAKE ON AN EMPTY STOMACH WITH A FULL GLASS OF WATER Rx# [id number] Last Released: 07/12/24 Qty/Days Supply: 180 Rx Expiration Date: 05/04/25 Refills Remainin Indication: FOR THYROID OUTPT LIDOCAINE 5% PATCH (Status = Active) APPLY 1 PATCH TOPICALLY ONCE DAILY NEEDED FOR NERVE PAIN (LEAVE PATCH ON FOR 12 HOURS, THEN REMOVE PATCH) Rx# [id number] Last Released: 05/04/24 Qty/Days Supply: Rx Expiration Date: 05/04/25 Refills Remainin Indication: FOR NERVE PAIN Non-VA MULTIVITAMIN W/MINERAL TAB TAKE BY MOUTH ONCE DAILY Non-VA OTHER CAP/TAB TAKE ALLERGY MED BY MOUTH ONCE DAILY Non-VA OTHER CAP/TAB TAKE AMLODIPINE 10MG/OLMESARTAN 20MG BY MOUTH ONCE DAILY OUTPT SILDENAFIL CITRATE 100MG TAB (Status = Active) TAKE ONE TABLET BY MOUTH ONCE DAILY NEEDED FOR ERECTILE DYSFUNCTION TAKE 1 HOUR PRIOR TO SEXUAL ACTIVITY Rx# [id number] Last Released: 05/04/24 Qty/Days Supply: Rx Expiration Date: 05/04/25 Refills Remainin Indication: FOR ERECTILE DYSFUNCTION OUTPT TRAZODONE HCL 100MG TAB (Status = Discontinued) TAKE ONE-HALF TABLET BY MOUTH AT BEDTIME NEEDED FOR INSOMNIA ASSOCIATED WITH DEPRESSION Rx# [id number] Last Released: 09/06/23 Qty/Days Supply: Rx Expiration Date: 09/03/24 Refills Remainin Indication: FOR INSOMNIA ASSOCIATED WITH DEPRESSION OUTPT TRAZODONE HCL 100MG TAB (Status = Active) TAKE ONE-HALF TABLET BY MOUTH AT BEDTIME NEEDED FOR INSOMNIA ASSOCIATED WITH DEPRESSION Rx# [id number] Last Released: 05/04/24 Qty/Days Supply: Rx Expiration Date: 05/04/25 Refills Remainin Indication: FOR INSOMNIA ASSOCIATED WITH DEPRESSION Non-VA ZINC 50MG (FROM SULFATE) CAP TAKE 1 CAPSULE BY MOUTH ONCE DAILY SUPPLIES OUTPT MEDICATION ORGANIZER 7DAY/2 SLOT (Status = Active/Suspended) USE 1 ORGANIZER DIRECTED ONE TIME TO ORGANIZE MEDICATIONS Rx# [id number] Last Released: Qty/Days Supply: 09/09 Rx Expiration Date: 08/14/24 Refills Remainin Indication: TO ORGANIZE MEDICATIONS /es/ NEISHA FLORES MD STAFF PHYSICIAN Signed: 07/15/2024 13:51 NEISHA FLORES [facility]
--- OUTSIDE RECORDS SUMMARY | 2024-10-11 21:14 | XMS_ITS | Encounter Summary ---
Author Name Department of [facility] Affairs ([place]) Organization Department of [facility] ([place]) Address [address] [place] [address] Care Team Providers Care Quality Control Representative Name Role Phone OSIEL ROACH Primary Care Provider Unavailab le Insurance Providers: All historical and current [...] BASIC FAMIL Y Aug 11, 2010 [id number] [phone] DONA BRADLEY Walter PATIENT BCBS [place] FEP PREFERRED PROVIDER ORGANIZAT ION (PPO) BASIC FAMIL Y Aug 11, 2010 [id number] DONA BRADLEY Walter PATIENT [employer] FEPRX PLAN PRESCRIPT ION CAREM ARK FEPRX Aug 11, 2010 [id number] DONA BRADLEY Walter PATIENT CAREMARK-F EP BCBS PRESCRIPT ION FEP CAREM ARK Aug 11, 2010 [id number] [phone] DONA BRADLEY Walter PATIENT Selected Encounter This section includes the information on record at [place] for the Encounter. Date/Time Encounter Type Encounter Description Reason Provider Source Sep 06, 2024 02:30 PM Outpatient Encounter PRIMARY CARE/MEDICINE VNICENT ALVARES Ava Encounter Template Text not used by [place] Plan of Treatment: Future Appointments (+ 6 months) and Future Tests (+/- 45 days) The Plan of Treatment section includes future care activities for the patient from all [place] [facility] This section includes future appointments and future orders which are active, pending or scheduled. Future Appointments This section includes appointments that were scheduled to occur 6 months from the date of the Encounter, up to a maximum of 20 appointments. The data comes from all [facility]. Appointment Date/Time Appointment Type Appointme nt Facility Name Sep 10, 2024 02:00 PM AMBULATORY - PSYCHIATRY [facility] Sep 13, 2024 01:00 PM AMBULATORY - PSYCHIATRY [facility] Sep 17, 2024 02:00 PM AMBULATORY - PSYCHIATRY [facility] Oct 06, 2024 02:00 PM [facility] Oct 13, 2024 02:30 PM [facility]ULATORY [facility] Nov 11, 2024 11:00 AM AMBULATORY - [facility]IC[facility] December 13, 2024 02:00 PM [facility] Active, Pending, and Scheduled Orders This section includes a listing of several types of active, pending, and scheduled orders, including clinic medications orders, diagnostic test orders, procedure orders and consult orders; where the start date of the order is 45 days before the date of the Encounter or 45 days after the date of theEncounter. The data comes from all [facility]. Test Date/Time Test Type Test Details Facility Name Aug 13, 2024 12:40 PM Consult Order [facility]-SLEEP STUDY Cons Mammal Keeper's Choice [facility] Aug 25, 2024 12:00 AM Laboratory - Chemi stry Order OCCULT BLOOD FIT X1 SCREEN (MFP ONLY) STOOL FECES [facility] Oct 06, 2024 01:54 PM Laboratory - Chemi stry Order ISLET CELL Ab SCREEN w/REFLEX TO TITER BLOOD (SST-SERUM) [facility] Oct 13, 2024 12:00 AM Laboratory - Chemi stry Order TSH BLOOD (SST-SERUM) SP [facility] Oct 13, 2024 12:00 AM Laboratory - Chemi stry Order THYROID T4 FREE(FT4) (WROX) BLOOD (SST-SERUM) [facility] Lab Results: +/- 30 days of the encounter This section includes the Chemistry and Hematology Lab Results on record with [place] for the patient. Radiology Reports and Pathology Reports are provided separately, in subsequent sections. Lab Results This section contains the Chemistry/Hematology Results that were resulted 30 days before or 30 daysafter the date of the Encounter. Date/Time Source Result Type Result - Unit Interpretation Reference Range Comment Oct 06, 2024 01:54 PM [facility] FAITH-65 Ab (Quest) Specimen Type: SERUM Comment: REFERENCE RANGE: <5 IU/mL This test was performed using the GAD65 NALDO method, which is standardized against the International reference preparation 97/550. Test Performed by [facility], [employer] [facility], [address] [place] [address] Tre Bahena M.D., Ph.D., Director of Laboratories , CLIA [id number] TEST PERFORMED AT: , Ordering Provider: NEISHA FLORES Report Released Date/Time: Jul 15, 2024 01:43 PM Reporting Lab: [facility] [address] [facility] [address] Performing Lab: [address] [address] FAITH-65 Ab (Quest) <5 [IU]/mL SEE BELOW Oct 06, 2024 01:54 PM [facility] THYROID T4 FREE(FT4) (WROX) Specimen Type: SERUM No comment entered. Ordering Provider: NEISHA FLORES Report Released Date/Time: Jul 15, 2024 01:44 PM Reporting Lab: [facility] [address] [facility] [address] Performing Lab: [facility] [address] [facility] [address] THYROID T4 FREE(FT4) (WROX) 2.44 ng/dL H 0.6-1.6 Oct 06, 2024 01:54 PM [facility] VITAMIN B12 Specimen Type: SERUM No comment entered. Ordering Provider: NEISHA FLORES Report Released Date/Time: Jul 15, 2024 01:44 PM Reporting Lab: [address] [address] Performing Lab: [address] [address] VITAMIN B12 373 pg/mL 200-900 Oct 06, 2024 01:54 PM [facility] TSH Specimen Type: SERUM No comment entered. Ordering Provider: NEISHA FLORES Report Released Date/Time: Jul 15, 2024 01:44 PM Reporting Lab: [address] [address] Performing Lab: [address] [address] TSH <0.06 u[IU]/mL L 0.35-5.00 Social History: Smoking Status (Most current) and Tobacco Use (All prior to encounter date) This section includes the most current, and the historical, smoking and tobacco- related health factors from the [place] facility where the Encounter took place. Current Smoking Status This section includes the most current smoking, or tobacco-related health factor, from the [place] facility where the Encounter took place. Date/Time Current Smoking Status Comment Jose laura May 03, 2024 02:00 PM [place]-TOBACCO NEVER USED [place] Tobacco Use History This section includes a history of the smoking, or tobacco-related health factors, that were collected on or before the date of the Encounter. The data comes from the [place] facility where the Encounter took place. Date/Time Smoking Status/Tobacco Use Comment Samy corey Jan 10, 2021 10:30 AM [place]-TOBACCO NEVER USED [place] Sep 09, 2017 09:25 AM LIFETIME NON-TOBACCO USER [place] Jan 22, 2017 10:26 AM CURRENT SMOKER [place] 2-3 per yr [place] Jan 22, 2017 10:26 AM V1-PT NOT INTEREST ED IN QUIT TOBACCO USE [place] Sep 06, 2015 08:49 AM LIFETIME NON-TOBACCO USER [facility] 05, 2009 11:22 AM LIFETIME NON-TOBACCO USER [place] Encounter Notes: All associated encounter notes This section contains the clinical notes associated to the Encounter. Date/Time Encounter Note(s) Provider Source Sep 06, 2024 02:44 PM PREVENTIVE MEDICIN E NURSING NOTE: LOCAL TITLE: CLINICAL REMINDERS/NURSING STANDARD TITLE: PREVENTIVE MEDICINE NURSING NOTE DATE OF NOTE: SEP 06, 2024@14:44 ENTRY DATE: SEP 06, 2024@14:44:10 AUTHOR: JA RODIGNER: URGENCY: STATUS: COMPLETED Homelessness/Food Insecurity Screen: In the past 2 months, have you been living in stable housing that you own, rent, or stay in as part of a household? Yes - Living in stable housing. Are you worried or concerned that in the next 2 months you may NOT have stable housing that you own, rent, or stay in as part of a household? No - Not worried about housing near future The reports the following: Within the past 12 months, you worried whether your food would run out before you got money to buy more. Never true Within the past 12 months, the food you bought just didn't last and you didn't have money to get more. Never true Avg Risk Colorectal Cancer Screen: AVERAGE RISK colorectal cancer screening is due based on information available to this clinical reminder CRC screen completed elsewhere and waiting for results. Results expected: Colonoscopy Hepatitis B Serology/Immunization: The patient declines to receive the recommended dose of Hepatitis B vaccine. Immunization: HEP B, UNSPECIFIED FORMULATION Refusal Reason: PATIENT DECISION Patient refuses all immunization(s) in the HepB group Date Documented: 09/06/24 14:52 PTSD Screening: PC-PTSD-5 A PTSD screening test (PC-PTSD-5) was positive (score=5). IN THE PAST MONTH, have you ever had any experience that was so frightening, horrible or traumatic. For example: A serious accident or fire a physical or sexual assault or abuse An earthquake or flood A war Seeing someone be killed or seriously injured Having a loved one through homicide or suicide 1. Have you ever experienced this kind of event? YES 2. Had nightmares about the event(s) or thought about the event(s) when you did not want to? YES 3. Tried hard not to think about the event(s) or went out of your way to avoid situations that reminded you of the event(s)? YES 4. Been constantly on guard, watchful, or easily startled? YES 5. [place] numb or detached from people, activities, or your surroundings? YES 6. [place] guilty or unable to stop blaming yourself or others for the event(s) or any problems the event(s) may have caused? YES Licensed Independent Provider notified of positive screen and need for follow-up. Name of provider notified: Green Herpes Zoster (Shingles) Vaccine: The patient declines to receive the recommended dose of zoster (shingles) vaccine. Immunization: ZOSTER RECOMBINANT Refusal Reason: PATIENT DECISION Patient refuses all immunization(s) in the ZOSTER group Date Documented: 09/06/24 14:55 /feliz/ JA ROD LPN LPN Signed: 09/06/2024 14:55 JA ROD [place]
--- OUTSIDE RECORDS SUMMARY | 2024-10-11 21:14 | XMS_ITS ---
Author Name [facility] [place] Organization [facility] [place] Address [address] [place] [address] Care Team Providers Care Enterprise Architect Name Role Phone OSIEL ROACH Primary Care [...] Name Patient's Relationship to Policy Blankenship CAN BCJEAN MARIE CT FEDERAL PREFERRED PROVIDER ORGANIZAT ION (PPO) BASIC FAMIL Y Aug 11, 2010 [id number] [phone] DONA BRADLEY PATIENT BCBS [place] FEP PREFERRED PROVIDER ORGANIZAT ION (PPO) BASIC FAMIL Y Aug 11, 2010 [id number] DONA BRADLEY PATIENT CAR[employer]ARK FEPRX PLAN PRESCRIPT ION CAREM ARK FEPRX Aug 11, 2010 [id number] [phone] DONA BRADLEY PATIENT CAREMARK-F EP BCBS PRESCRIPT ION FEP CAREM ARK Aug 11, 2010 [id number] MIRNADONA Watson PATIENT Selected Encounter This section includes the information on record at [place] for the Encounter. Date/Time Encounter Type Encounter Description Reason Pro vider Source Oct 01, 2024 03:21 PM Outpatient Encounter TELEPHONE MH IHE Encounter Template Text not used by [place] Plan of Treatment: Future Appointments (+ 6 months) and Future Tests (+/- 45 days) The Plan of Treatment section includes future care activities for the patient from all [place] [facility]. This section includes future appointments and future orders which are active, pending or scheduled. Future Appointments This section includes appointments that were scheduled to occur 6 months from the date of the Encounter, up to a maximum of 20 appointments. The data comes from all [facility]. Appointment Date/Time Appointment Type Appointme nt Facility Name Oct 06, 2024 02:00 PM AMBULATORY - MEDICINE [facility] Oct 13, 2024 02:30 PM AMBULATORY MEDICINE [facility] Nov 11, 2024 11:00 AM AMBULATORY - MEDICINE [facility] December 13, 2024 02:00 PM AMBULATORY MEDICINE [facility] Active, Pending, and Scheduled Orders This section includes a listing of several types of active, pending, and scheduled orders, including clinic medications orders, diagnostic test orders, procedure orders and consult orders; where the start date of the order is 45 days before the date of the Encounter or 45 days after the date of theEncounter. The data comes from all [facility]. Test Date/Time Test Type Test Details Facility Name Aug 25, 2024 12:00 AM Laboratory - Chemi stry Order OCCULT BLOOD FIT X1 SCREEN (MFP ONLY) STOOL FECES SP [facility] Oct 06, 2024 01:54 PM Laboratory - Chemi stry Order ISLET CELL Ab SCREEN w/REFLEX TO TITER BLOOD (SST-SERUM) SP [facility] Oct 13, 2024 12:00 AM Laboratory - Chemi stry Order THYROID T4 FREE(FT4) (WROX) BLOOD (SST-SERUM) SP [facility] Oct 13, 2024 12:00 AM Laboratory - Chemi stry Order TSH BLOOD (SST-SERUM) [facility] Lab Results: +/- 30 days of the encounter This section includes the Chemistry and Hematology Lab Results on record with [place] for the patient. Radiology Reports and Pathology Reports are provided separately, in subsequent sections. Lab Results This section contains the Chemistry/Hematology Results that were resulted 30 days before or 30 daysafter the date of the Encounter. Date/Time Source Result Type Result - Unit Interpretation Reference Range Comment Oct 06, 2024 01:54 PM [facility] FAITH-65 Ab (Quest) Specimen Type: SERUM Comment: REFERENCE RANGE: <5 IU/mL This test was performed using the GAD65 NALDO method, which is standardized against the International reference preparation 97/550. Test Performed by [employer], [employer] [facility], [address] [place] [address] Tre Bahena M.D., Ph.D., Director of Laboratories , CLIA [id number] TEST PERFORMED AT: , Ordering Provider: NEISHA FLORES Report Released Date/Time: Jul 15, 2024 01:43 PM Reporting Lab: [facility] [address] [facility] [address] Performing Lab: [facility]ITAL[facility] [address] FAITH-65 Ab (Quest) <5 [IU]/mL SEE BELOW Oct 06, 2024 01:54 PM [facility] THYROID T4 FREE(FT4) (WROX) Specimen Type: SERUM No comment entered. Ordering Provider: NEISHA FLORES Report Released Date/Time: Jul 15, 2024 01:44 PM Reporting Lab: [facility] [address] [facility] [address] Performing Lab: [facility] [address] [address] THYROID T4 FREE(FT4) (WROX) 2.44 ng/dL H 0.6-1.6 Oct 06, 2024 01:54 PM [facility] VITAMIN B12 Specimen Type: SERUM No comment entered. Ordering Provider: NEISHA FLORES Report Released Date/Time: Jul 15, 2024 01:44 PM Reporting Lab: [facility] [address] [facility] [address] Performing Lab: [facility]ITALTRN [facility]ITAL[facility] [address] [facility] [address] VITAMIN B12 373 pg/mL 200-900 Oct 06, 2024 01:54 PM [facility]ITAL[facility]ITAL[facility] TSH Specimen Type: SERUM No comment entered. Ordering Provider: NEISHA FLORES Released Date/Time: Jul 15, 2024 01:44 PM Reporting Lab: [facility]ITALRRMC [facility]ITALN [facility] [address] [facility] [address] Performing Lab: [facility]PITALUSE[address] [address] TSH <0.06 u[IU]/mL L 0.35-5.00 Social History: Smoking Status (Most current) and Tobacco Use (All prior to encounter date) This section includes the most current, and the historical, smoking and tobacco- related health factors from the [place] facility where the Encounter took place. Current Smoking Status This section includes the most current smoking, or tobacco-related health factor, from the [place] facility where the Encounter took place. Date/Time Current Smoking Status Comment Facil ity Jun 02, 2023 11:40 AM [place]-TOBACCO NEVER USED [facility] Tobacco Use History This section includes a history of the smoking, or tobacco-related health factors, that were collected on or before the date of the Encounter. The data comes from the [place] facility where the Encounter took place. Date/Time Smoking Status/Tobacco Use Comment F acbenjy December 11, 2021 03:10 PM [place]-TOBACCO NEVER USED [facility] Encounter Notes: All associated encounter notes This section contains the clinical notes associated to the Encounter. Date/Time Encounter Note(s) Provider Source Oct 07, 2024 10:04 AM ADDENDUM: LOCAL TITLE: Addendum STANDARD TITLE: ADDENDUM DATE OF NOTE: OCT 07, 2024@10:04 ENTRY DATE: OCT 07, 2024@10:04:39 AUTHOR: LEEANNA HERNANDEZ EXP COSIGNER: BEVERLEY MENARD URGENCY: STATUS: COMPLETED Called [employer] and provided information that he should inquire about letter for hours change at work due to insomnia/sleep apnea through his PCP. 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 /pankaj HERNANDEZ MA Senior Account Representative Signed: 10/07/2024 10:05 /pankaj MENARD PSYD Clinical Psychologist Cosigned: 10/07/2024 11:51 Receipt Acknowledged By: 10/07/2024 15:55 /feliz/ KRISTIAN LAZO,RN-BC REGISTERED NURSE (RN) ======== --- Original Document --- 10/01/24 TELEPHONE NOTE/MENTAL HEALTH: [employer] called to inquire about documentation of his sleep apnea/insomnia for request of hour changes at work. Agreed to discuss with his care team. /pankaj HERNANDEZ MA Senior Account Representative Signed: 10/01/2024 15:22 /feliz/ BEVERLEY MENARD PSYD Clinical Psychologist Cosigned: 10/01/2024 15:44 10/07/2024 ADDENDUM STATUS: UNSIGNED You may not VIEW this UNSIGNED Addendum. LEEANNA HERNANDEZ Oct 01, 2024 03:21 PM MENTAL HEALTH TELE PHONE ENCOUNTER NOTE: LOCAL TITLE: TELEPHONE NOTE/MENTAL HEALTH STANDARD TITLE: MENTAL HEALTH TELEPHONE ENCOUNTER NOTE DATE OF NOTE: OCT 01, 2024@15:21 ENTRY DATE: OCT 01, 2024@15:21:44 AUTHOR: LEEANNA HERNANDEZ EXP COSIGNER: BEVERLEY MENARD URGENCY: STATUS: COMPLETED TELEPHONE NOTE/MENTAL HEALTH Has ADDENDA [employer] called to inquire about documentation of his sleep apnea/insomnia for request of hour changes at work. Agreed to discuss with his care team. /pankaj HERNANDEZ MA Senior Account Representative Signed: 10/01/2024 15:22 /pankaj MENARD PSYD Clinical Psychologist Cosigned: 10/01/2024 15:44 10/07/2024 ADDENDUM STATUS: COMPLETED Called [employer] and provided information that he should inquire about letter for hours change at work due to insomnia/sleep apnea through his PCP. 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 /feliz/ LEEANNA HERNANDEZ MA Senior Account Representative Signed: 10/07/2024 10:05 /feliz/ BEVERLEY MENARD PSYD Clinical Psychologist Cosigned: 10/07/2024 11:51 Receipt Acknowledged By: 10/07/2024 15:55 /feliz/ KRISTIAN LAZO,RN-BC REGISTERED NURSE (RN) 10/07/2024 ADDENDUM STATUS: COMPLETED In his request for a letter for his job at [employer], the patient indicates that he suffers from severe sleep apnea. He claims that he starts his workday at five in the morning and leaves at one thirty in the afternoon. Patient states his quality of sleep is poor. Twisting Frame Operator asked if he had his sleep study done with the community, and he responded that his appointment is scheduled for Friday. The author suggested that the postpone his letter request until the testing is completed and he has received his equipment. Twisting Frame Operator advised his sleep quality should improve if report indicates he needs CPAP or Bipap prescribed. states okay. /feliz/ KRISTIAN LAZO,RN-BC REGISTERED NURSE (RN) Signed: 10/07/2024 16:15 LEEANNA HERNANDEZ
--- OUTSIDE RECORDS SUMMARY | 2024-10-11 21:14 | XMS_ITS | Encounter Summary ---
Author Name [facility] [place] [facility] [place] [facility] [place] Address [address] [place] [address] Care Team Providers Care Referral Rn Name Role Phone OSIEL ROACH Primary Care [...] BASIC FAMIL Y Aug 11, 2010 112 [id number] [phone] DONA BRADLEY Walter PATIENT BCBS [place] FEP PREFERRED PROVIDER ORGANIZAT ION (PPO) BASIC FAMIL Y Aug 11, 2010 [id number] DONA BRADLEY Walter PATIENT CAR[employer]ARK FEPRX PLAN PRESCRIPT ION CAREM ARK FEPRX Aug 11, 2010 [id number] DONA BRADLEY PATIENT CAREMARK-F EP BCBS PRESCRIPT ION FEP CAREM ARK Aug 11, 2010 [id number] MIRNADONA Watson PATIENT Selected Encounter This section includes the information on record at [place] for the Encounter. Date/Time Encounter Type Encounter Description Reason Pro vider Source Oct 09, 2024 10:34 AM Outpatient Encounter ENDOCRINOLOGY IHE Encounter Template Text not used by [place] Plan of Treatment: Future Appointments (+ 6 months) and Future Tests (+/- 45 days) The Plan of Treatment section includes future care activities for the patient from all [place] [facility] This section includes future appointments and future orders which are active, pending or scheduled. Future Appointments This section includes appointments that were scheduled to occur 6 months from the date of the Encounter, up to a maximum of 20 appointments. The data comes from all [facility]. Appointment Date/Time Appointment Type Appointme nt Facility Name Oct 13, 2024 02:30 PM AMBULATORY - MEDICINE [facility] Nov 11, 2024 11:00 AM AMBULATORY MEDICINE [facility] December 13, 2024 02:00 PM AMBULATORY MEDICINE [facility] Active, Pending, and Scheduled Orders This section includes a listing of several types of active, pending, and scheduled orders, including clinic medications orders, diagnostic test orders, procedure orders and consult orders; where the start date of the order is 45 days before the date of the Encounter or 45 days after the date of theEncounter. The data comes from all [facility]. Test Date/Time Test Type Test Details Facility Name Aug 25, 2024 12:00 AM Laboratory - Chemi stry Order OCCULT BLOOD FIT X1 SCREEN (MFP ONLY) STOOL FECES [facility] Oct 06, 2024 01:54 PM Laboratory - Chemi stry Order ISLET CELL Ab SCREEN w/REFLEX TO TITER BLOOD (SST-SERUM) [facility] Oct 13, 2024 12:00 AM Laboratory - Chemi stry Order THYROID T4 FREE(FT4) (WROX) BLOOD (SST-SERUM) [facility] Oct 13, 2024 12:00 AM Laboratory - Chemi stry Order TSH BLOOD (SST-SERUM) [facility] Lab Results: +/- 30 days of [...] Range Comment Oct 06, 2024 01:54 PM [facility] FAITH-65 Ab ([facility]) Specimen Type: SERUM Comment: REFERENCE RANGE: <5 IU/mL This test was performed using the GAD65 NALDO method, which is standardized against the International reference preparation 97/550. Test Performed by [facility], [facility], [address] [place] [address] Tre Bahena M.D., Ph.D., Director of Laboratories , [place] [id number] TEST PERFORMED AT: , Ordering Provider: NEISHA FLORES Report Released Date/Time: Jul 15, 2024 01:43 PM Reporting Lab: [address] [address] Performing Lab: [facility] [address] [address] FAITH-65 Ab ([facility]) <5 [IU]/mL SEE BELOW Oct 06, 2024 01:54 PM [facility] THYROID T4 FREE(FT4) (WROX) Specimen Type: SERUM No comment entered. Ordering Provider: NEISHA FLORES Report Released Date/Time: Jul 15, 2024 01:44 PM Reporting Lab: [facility] [address] [facility] [address] Performing Lab: [facility] [address] [facility] [address] THYROID T4 FREE(FT4) (WROX) 2.44 ng/dL H 0.6-1.6 Oct 06, 2024 01:54 PM [facility] VITAMIN B12 Specimen Type: SERUM No comment entered. Ordering Provider: NEISHA FLORES Report Released Date/Time: Jul 15, 2024 01:44 PM Reporting Lab: [address] [address] Performing Lab: [facility] [place] [facility] [address] [facility] [address] VITAMIN B12 373 pg/mL 200-900 Oct 06, 2024 01:54 PM [place] [facility] [place] [facility] TSH Specimen Type: SERUM No comment entered. Ordering Provider: NEISHA FLORES Report Released Date/Time: Jul 15, 2024 01:44 PM Reporting Lab: [facility] [address] [facility] [address] Performing Lab: [place] [facility] [place] [facility] [address] [facility] [address] TSH <0.06 u[IU]/mL L 0.35-5.00 Social History: [...] 02, 2023 11:40 AM [place]-TO[place]AC[place] NEVER USED [facility] Tobacco Use History This section includes a history of the smoking, or tobacco-related health factors, that were collected on or before the date of the Encounter. The data comes from the [place] facility where the Encounter took place. Date/Time Smoking Status/Tobacco Use Comment F acility December 11, 2021 03:10 PM [place]-TOBACCO NEVER USED [facility] Encounter Notes: All associated encounter notes This section contains the clinical notes associated to the Encounter. Date/Time Encounter Note(s) Provider Source Oct 09, 2024 10:34 AM PHYSICIAN NOTE: LOCAL TITLE: MD NOTE STANDARD TITLE: PHYSICIAN NOTE DATE OF NOTE: OCT 09, 2024@10:34 ENTRY DATE: OCT 09, 2024@10:35:01 AUTHOR: NEISHA FLORES COSIGNER: URGENCY: STATUS: COMPLETED T/C L/M. /feliz/ NEISHA FLORES MD STAFF PHYSICIAN Signed: 10/09/2024 10:35 NEISHA FLORES [facility]
--- OUTSIDE RECORDS SUMMARY | 2024-10-11 21:14 | XMS_ITS | Encounter Summary ---
Author Name [facility] Address [address] [place] [address] Care Team Providers Care Supervisor Scrap Preparation Name Role Phone OSIEL ROACH Primary Care [...] Name Patient's Relationship to Policy Blankenship CAN [facility] CT FEDERAL PREFERRED PROVIDER ORGANIZAT ION (PPO) BASIC FAMIL Y Aug 11, 2010 [id number] [phone] DONA BRADLEY Walter PATIENT BCBS [place] FEP PREFERRED PROVIDER ORGANIZAT ION (PPO) BASIC FAMIL Y Aug 11, 2010 [id number] DONA BRADLEY Walter PATIENT [employer] FEPRX PLAN PRESCRIPT ION CAREM ARK FEPRX Aug 11, 2010 [id number] DONA BRADLEY Walter PATIENT [employer]-F EP BCBS PRESCRIPT ION FEP CAREM ARK Aug 11, 2010 [id number] DONA BRADLEY Walter PATIENT Selected Encounter This section includes the information on record at [place] for the Encounter. Date/Time Encounter Type Encounter Description Reason Pro vider Source Sep 10, 2024 02:00 PM Outpatient Encounter [facility] Encounter Template Text not used by [place] Plan of Treatment: Future Appointments (+ 6 months) and Future Tests (+/- 45 days) The Plan of Treatment section includes future care activities for the patient from all [place] [facility]. This section includes future appointments and future orders which are active, pending or scheduled. Future Appointments This section includes appointments that were scheduled to occur 6 months from the date of the Encounter, up to a maximum of 20 appointments. The data comes from all [facility]. Appointment Date/Time Appointment Type Appointme nt Facility Name Sep 13, 2024 01:00 PM AMBULATORY - PSYCHIATRY [facility] Sep 17, 2024 02:00 PM AMBULATORY - PSYCHIATRY [facility] Oct 06, 2024 02:00 PM AMBULATORY - MEDICINE [facility] Oct 13, 2024 02:30 PM [facility] Nov 11, 2024 11:00 AM [facility] December 13, 2024 02:00 PM AMBULATORY MEDICINE [facility] Active, Pending, and Scheduled Orders This section includes a listing of several types of active, pending, and scheduled orders, including clinic medications orders, diagnostic test orders, procedure orders and consult orders; where the start date of the order is 45 days before the date of the Encounter or 45 days after the date of theEncounter. The data comes from all [facility]. Test Date/Time Test Type Test Details Facility Name Aug 13, 2024 12:40 PM Consult Order [facility]-SLEEP STUDY Cons Waiter/Waitress Tourist Class's Choice [facility] Aug 25, 2024 12:00 AM Laboratory - Chemi stry Order OCCULT BLOOD FIT X1 SCREEN (MFP ONLY) STOOL FECES [facility] Oct 06, 2024 01:54 PM Laboratory - Chemi stry Order ISLET CELL Ab SCREEN w/REFLEX TO TITER BLOOD (SST-SERUM) [facility] Oct 13, 2024 12:00 AM Laboratory - Chemi stry Order THYROID T4 FREE(FT4) (WROX) BLOOD (SST-SERUM) [facility] Oct 13, 2024 12:00 AM Laboratory - Chemi stry Order TSH BLOOD (SST-SERUM) SP [facility] Lab Results: +/- 30 days of the [...] Range Comment Oct 06, 2024 01:54 PM [facility] FAITH-65 Ab ([facility]) Specimen Type: SERUM Comment: REFERENCE RANGE: <5 IU/mL This test was performed using the GAD65 NALDO method, which is standardized against the International reference preparation 97/550. Test Performed by [facility], [facility], [address] [place] [address] Tre Bahena M.D., Ph.D., Director of Laboratories , CLIA [id number] TEST PERFORMED AT: , Ordering Provider: NEISHA FLORES Report Released Date/Time: Jul 15, 2024 01:43 PM Reporting Lab: [facility] [address] [facility] [address] Performing Lab: [facility] [address] [address] FAITH-65 Ab ([facility]) <5 [IU]/mL SEE BELOW Oct 06, 2024 01:54 PM [facility] THYROID T4 FREE(FT4) (WROX) Specimen Type: SERUM No comment entered. Ordering Provider: NEISHA FLORES Report Released Date/Time: Jul 15, 2024 01:44 PM Reporting Lab: [facility] [address] [facility] [address] Performing Lab: [facility] [address] [facility] [address] THYROID T4 FREE(FT4) (WROX) 2.44 ng/dL H 0.6-1.6 Oct 06, 2024 01:54 PM [facility] VITAMIN B12 Specimen Type: SERUM No comment entered. Ordering Provider: NEISHA FLORES Report Released Date/Time: Jul 15, 2024 01:44 PM Reporting Lab: [facility] [address] [facility] [address] Performing Lab: [address] [address] VITAMIN B12 373 pg/mL 200-900 Oct 06, 2024 01:54 PM [facility] TSH Specimen Type: SERUM No comment entered. Ordering Provider: NEISHA FLOERS Report Released Date/Time: Jul 15, 2024 01:44 PM Reporting Lab: [address] [address] Performing Lab: [address] [address] TSH <0.06 u[IU]/mL L 0.35-5.00 Social History: [...] 03, 2024 02:00 PM [place]-TOBACCO NEVER USED [facility] Tobacco Use History This section includes a history of the smoking, or tobacco-related health factors, that were collected on or before the date of the Encounter. The data comes from the [place] facility where the Encounter took place. Date/Time Smoking Status/Tobacco Use Comment F acility Jan 10, 2021 10:30 AM [place]-TOBACCO NEVER USED [facility] Sep 09, 2017 09:25 AM LIFETIME NON-TOBACCO USER [facility]ER Jan 22, 2017 10:26 AM CURRENT SMOKER [place] 2-3 per yr READER Jan 22, 2017 10:26 AM V1-PT NOT INTEREST ED IN QUIT TOBACCO USE [facility] Sep 06, 2015 08:49 AM LIFETIME NON-TOBACCO USER READER Jan 13, 2009 11:22 AM LIFETIME NON-TOBACCO USER READER Encounter Notes: All associated encounter notes This section contains the clinical notes associated to the Encounter. Date/Time Encounter Note(s) Provider Source Sep 10, 2024 02:14 PM CLERICAL NOTE: LOCAL TITLE: APPOINTMENT NO SHOW STANDARD TITLE: CLERICAL NOTE DATE OF NOTE: SEP 10, 2024@14:14 ENTRY DATE: SEP 10, 2024@14:15:04 AUTHOR: LEEANNA HERNANDEZ EXP COSIGNER: BEVERLEY MENARD URGENCY: STATUS: COMPLETED Patient Name: ANNIE BRADLEY Patient SSN: [id number] Date and time of Appointment No show : 09/10/24 14:00 PATIENT PHONE - PHONE NUMBER [CELLULAR] - Patient's medical record was reviewed. Follow-up actions were determined and initiated: Please check/complete as applies: [X]Telephoned Directly [X]Re-scheduled for next available appt [ ]Sent a N0-show letter ( must call for appointment) [ ]Other (Emergent/Overbook, etc.): Additional Comments: [place] was called 10 minutes after start of appt. denied being able to make appt. Discussion was had around attending last 2 sessions of manualized treatment. He agreed to come in 09/13/24 @ 1:00 p.m. for reschedule appt. Future Clinic Visits 10/06/2024 14:00 SPR PHARM PACT 2 10/13/2024 14:30 [facility] ENDOCRINE MD 1 12/13/2024 14:00 CWM/SO/PACT 9 /feliz/ LEEANNA HERNANDEZ MA Superintendent [employer] Signed: 09/10/2024 14:16 /feliz/ BEVERLEY MENARD PSYD Clinical Psychologist Cosigned: 09/10/2024 14:21 LEEANNA HERNANDEZ
--- OUTSIDE RECORDS SUMMARY | 2024-10-11 21:14 | XMS_ITS | Encounter Summary ---
Author Name [facility] [place] Address [address] [place] [address] Care Team Providers Care Top Lift Cutter Name Role Phone OSIEL ROACH Primary Care [...] Name Patient's Relationship to Policy Blankenship CAN [facility] CT FEDERAL PREFERRED PROVIDER ORGANIZAT ION (PPO) BASIC FAMIL Y Aug 11, 2010 [id number] DONA BRADLEY Walter PATIENT BCBS [place] FEP PREFERRED PROVIDER ORGANIZAT ION (PPO) BASIC FAMIL Y Aug 11, 2010 [id number] DONA BRADLEY Walter PATIENT [employer] FEPRX PLAN PRESCRIPT ION CAREM ARK FEPRX Aug 11, 2010 [id number] DONA BRADLEY Walter PATIENT [employer]-F EP BCBS PRESCRIPT ION FEP CAREM ARK Aug 11, 2010 [id number] [phone] MIRNADONA Watson PATIENT Selected Encounter This section includes the information on record at [place] for the Encounter. Date/Time Encounter Type Encounter Description Reason Provider Source Sep 13, 2024 01:00 PM PSYTX W PT 45 MINUTES [facility] - IND ICD-10-CM G89.29 Other chronic pain BEVERLEY MENARD Encounter Template Text not used by [place] Assessments - Encounter Diagnoses This section includes the primary and secondary diagnoses documented for the Encounter. Date/Time Primary/Secondary Diagnosis Diagnosis Name Provider Source Sep 13, 2024 02:27 PM PRIMARY Other chronic pain THOMAS HERNANDEZSSALFREDO Almaguer [facility] Plan of Treatment: Future Appointments (+ 6 months) and Future Tests (+/- 45 days) The Plan of Treatment section includes future care activities for the patient from all [place] [facility]. This section includes future appointments and future orders which are active, pending or scheduled. Future Appointments This section includes appointments that were scheduled to occur 6 months from the date of the Encounter, up to a maximum of 20 appointments. The data comes from all [facility] facilities. Appointment Date/Time Appointment Type Appointme nt Facility Name Sep 17, 2024 02:00 PM AMBULATORY - PSYCHIATRY [facility] Oct 06, 2024 02:00 PM [facility] Oct 13, 2024 02:30 PM [facility] Nov 11, 2024 11:00 AM AMBULATORY - MEDICINE [facility] December 13, 2024 02:00 PM AMBULATORY MEDICINE [facility] Active, Pending, and Scheduled Orders This section includes a listing of several types of active, pending, and scheduled orders, including clinic medications orders, diagnostic test orders, procedure orders and consult orders; where the start date of the order is 45 days before the date of the Encounter or 45 days after the date of theEncounter. The data comes from all [facility]. Test Date/Time Test Type Test Details Facility Name Aug 13, 2024 12:40 PM Consult Order COMMUNITY CARE-SLEEP STUDY Cons Network Security Architect's Choice [facility] Aug 25, 2024 12:00 AM Laboratory - Chemi stry Order OCCULT BLOOD FIT X1 SCREEN (MFP ONLY) STOOL FECES [facility] Oct 06, 2024 01:54 PM Laboratory - Chemi stry Order ISLET CELL Ab SCREEN w/REFLEX TO TITER BLOOD (SST-SERUM) SP [facility] Oct 13, 2024 12:00 AM Laboratory - Chemi stry Order THYROID T4 FREE(FT4) (WROX) BLOOD (SST-SERUM) SP [facility] Oct 13, 2024 12:00 AM Laboratory - Chemi stry Order TSH BLOOD (SST-SERUM) [facility] Lab Results: +/- 30 days of the encounter This section includes the Chemistry and Hematology Lab Results on record with [place] for the patient. Radiology Reports and Pathology Reports are provided separately, in subsequent sections. Lab Results This section contains the Chemistry/Hematology Results that were resulted 30 days before or 30 daysafter the date of the Encounter. Date/Time Source Result Type Result - Unit Interpretation Reference Range Comment Oct 06, 2024 01:54 PM [facility] FAITH-65 Ab (Quest) Specimen Type: SERUM Comment: REFERENCE RANGE: <5 IU/mL This test was performed using the GAD65 NALDO method, which is standardized against the International reference preparation 97/550. Test Performed by [facility], [employer] [facility], [address] [place] [address] Tre Bahena M.D., Ph.D., Director of Laboratories , [place] [id number] TEST PERFORMED AT: , Ordering Provider: NEISHA FLORES Report Released Date/Time: Jul 15, 2024 01:43 PM Reporting Lab: [address] [address] Performing Lab: [facility] [address] [address] FAITH-65 Ab (Quest) <5 [IU]/mL SEE BELOW Oct 06, 2024 01:54 PM [facility] THYROID T4 FREE(FT4) (WROX) Specimen Type: SERUM No comment entered. Ordering Provider: NEISHA FLORES Report Released Date/Time: Jul 15, 2024 01:44 PM Reporting Lab: [address] [address] Performing Lab: [facility] [address] [facility] [address] THYROID T4 FREE(FT4) (WROX) 2.44 ng/dL H 0.6-1.6 Oct 06, 2024 01:54 PM [facility] VITAMIN B12 Specimen Type: SERUM No comment entered. Ordering Provider: NEISHA FLORES Report Released Date/Time: Jul 15, 2024 01:44 PM Reporting Lab: [facility] [facility] [address] [address] Performing Lab: [facility] [address] [address] VITAMIN B12 373 pg/mL 200-900 Oct 06, 2024 01:54 PM [facility] TSH Specimen Type: SERUM No comment entered. Ordering Provider: NEISHA FLORES Report Released Date/Time: Jul 15, 2024 01:44 PM Reporting Lab: [facility] [address] [address] Performing Lab: [facility] [address] [address] TSH <0.06 u[IU]/mL L 0.35-5.00 Social History: Smoking Status (Most current) and Tobacco Use (All prior to encounter date) This section includes the most current, and the historical, smoking and tobacco- related health factors from the [place] facility where the Encounter took place. Current Smoking Status This section includes the most current smoking, or tobacco-related health factor, from the [place] facility where the Encounter took place. Date/Time Current Smoking Status Comment Jose laura May 03, 2024 02:00 PM [place]-TOBACCO NEVER USED [facility] Tobacco Use History This section includes a history of the smoking, or tobacco-related health factors, that were collected on or before the date of the Encounter. The data comes from the [place] facility where the Encounter took place. Date/Time Smoking Status/Tobacco Use Comment F [email or web address] Jan 10, 2021 10:30 AM [place]-TOBACCO NEVER USED [facility] Sep 09, 2017 09:25 AM LIFETIME NON-TOBACCO USER [facility] Jan 22, 2017 10:26 AM CURRENT SMOKER [place] 2-3 per yr [facility] Jan 22, 2017 10:26 AM V1-PT NOT INTEREST ED IN QUIT TOBACCO USE [facility] Sep 06, 2015 08:49 AM LIFETIME NON-TOBACCO USER [facility] Jan 13, 2009 11:22 AM LIFETIME NON-TOBACCO USER [facility] Encounter Notes: All associated encounter notes This section contains the clinical notes associated to the Encounter. Date/Time Encounter Note(s) Provider Source Sep 13, 2024 02:13 PM MENTAL HEALTH NOTE : LOCAL TITLE: CBT CHRONIC PAIN THERAPY NOTE STANDARD TITLE: MENTAL HEALTH NOTE DATE OF NOTE: SEP 13, 2024@14:13 ENTRY DATE: SEP 13, 2024@14:13:30 AUTHOR: LEEANNA HERNANDEZ EXP COSIGNER: BEVERLEY MENARD URGENCY: STATUS: COMPLETED CBT CHRONIC PAIN THERAPY NOTE Has ADDENDA Cognitive Behavioral Therapy for Chronic Pain (CBT-CP): SLEEP Time in session (in minutes): 50 SESSION NUMBER: 10 SESSION FORMAT: Peev-gb-vyex session SESSION LOCATION (e.g., Outpatient , [facility], [facility], Inpatient Unit, Primary Care, etc.): [facility] DIAGNOSIS: Primary (focus of treatment): Chronic Pain Secondary (if applicable): ASSESSMENT: SUDS Ratin This score is indicative of a minimal level of distress. Insomnia Severity Index (VIOLA): 18 This score is indicative of a moderate level of sleep disruption. RISK INFORMATION (note any indication of SI/HI and any other relevant risk information; complete local template, if appropriate): No suicidal or homicidal ideation endorsed. MENTAL STATUS/BEHAVIORAL OBSERVATIONS (note any relevant mental status factors and/or behavioral observations): Appearance: well-groomed Orientation: person, place, date Relational pattern: normative Attention: focused Speech: clear Motor: normative Mood and affect: euthymic Thought process: linear Insight: fair Judgment: fair OTHER RELEVANT ASSESSMENT OBSERVATIONS (note any additional structured or clinical assessment information; e.g., cultural/spiritual influences, substance use, etc.):None BETWEEN SESSION PRACTICE ENGAGEMENT [place]'s engagement with between session practice goals was moderate The following coping statement was identified: I can do more when I pace SESSION CONTENT: The completed the Sleep session of Cognitive Behavioral Therapy for Chronic Pain (CBT-CP), which focuses on the interaction between pain and sleep, behaviors that influence sleep and Stimulus Control. The following occurred during the session: Briefly reviewed previous session and asked if [place] needed any clarification., Discussed practice goals from last session., If practice goals were met, and therapist provided reinforcement/praise., Identified behaviors that negatively impact sleep., Described rationale for Stimulus Control and proper sleep hygiene., Introduced Sleep Hygiene Handout and Sleep Behavior Change Log., Discussed the pain and sleep interaction. Veterans reaction included: reflection on current health goals and behavioral changes for better sleep. PRACTICE ASSIGNMENT [place] will complete the Sleep Behavior Change Log Assessed any barriers to attending therapy and assisted the in problem-solving these barriers: No barriers identified. COLLABORATION The degree of collaboration between the and the therapist in the current session was: Moderate Description of collaboration in this session: Discussion of sleep hygiene, patterns of sleep, behaviors that can promote better sleep. ADDITIONAL SESSION INFORMATION: Wayne presented to session with examples from the prior week of using balanced thinking. Specifically, using balanced thoughts when faced with tasks (e.g., shoveling, cleaning the floors at work) and identifying negative thoughts (e.g. I should be able to do this all in one go ) while choosing the behavior that was best to manage his pain and addressing his thought ( Pacing helps my pain. It is okay to not get it all done at once. It will get done in the end .). We discussed sleep and Wayne shared that he takes trazadone for sleep and uses the alpha-stim for 30 minutes before bed. He currently gets 5 hours of sleep which is a significant improvement from having 3 broken up hours in the past. He has recently been diagnosed with sleep apnea- severe, which he is getting fitted for a CPAP and oxygen to use to sleep. Wayne agreed to track is trazadone use, alpha stim use, and eating before bed until next session. PLAN Next session planned for agreed upon date/time of: Sep At: 2 SUPERVISION: This case is supervised by Beverley Menard Psy.D, licensed psychologist. Diagnosis, treatment plan, and response to care are discussed in a standard weekly, 60 minute individual supervision meeting. /feliz/ LEEANNA HERNANDEZ MA Energy Professional Signed: 09/13/2024 14:28 /feliz/ BEVERLEY MENARD PSYD Clinical Psychologist Cosigned: 09/13/2024 16:11 09/13/2024 ADDENDUM STATUS: COMPLETED I have reviewed this case and concur with the clinical impressions and recommendations made by Leeanna Hernandez, Energy Professional who is under my clinical supervision. /feliz/ BEVERLEY MENARD PSYD Clinical Psychologist Signed: 09/13/2024 16:11 LEEANNA HERNANDEZ Sep 13, 2024 02:09 PM MENTAL HEALTH DIAG NOSTIC STUDY NOTE: LOCAL TITLE: MENTAL HEALTH DIAGNOSTIC STUDY STANDARD TITLE: MENTAL HEALTH DIAGNOSTIC STUDY NOTE DATE OF NOTE: SEP 13, 2024@14:09 ENTRY DATE: SEP 13, 2024@14:09:24 AUTHOR: LEEANNA HERNANDEZ EXP COSIGNER: BEVERLEY MENARD URGENCY: STATUS: COMPLETED Insomnia Severity Index Date Given: 09/13/2024 Clinician: Leeanna Hernandez [place] [facility] Spray Crew : Wayne Bradleyley SSN: [id number] : [birth year] ([birth year]) Gender: Male VIOLA score: 18 Score categories: 0 - 7 No clinically significant insomnia 8 - 14 Subthreshold insomnia 15 - 21 Clinical insomnia (moderate severity) 22 - 28 Clinical insomnia (severe) Questions and Answers 1. Difficulty falling asleep. Severe 2. Difficulty staying asleep. Moderate 3. Problems waking up too early. Moderate 4. How SATISFIED/DISSATISFIED are you with your CURRENT sleep pattern? Dissatisfied 5. How NOTICEABLE to others do you think your sleep problem is in terms of impairing the quality of your life? Somewhat 6. How WORRIED/DISTRESSED are you about your current sleep problem? Much 7. To what extent do you consider your sleep problem to INTERFERE with your daily functioning (e.g. daytime fatigue, mood, ability to function at work/daily chores, concentration, memory, mood, etc.) CURRENTLY? Much Information contained in this note is based on a self-report assessment and is not sufficient to use alone for diagnostic purposes. Assessment results should be verified for accuracy and used in conjunction with other diagnostic activities and procedures. /pankaj HERNANDEZ MA Energy Professional Signed: 09/13/2024 14:28 /pankaj MENARD PSYD Clinical Psychologist Cosigned: 09/13/2024 16:10 LEEANNA HERNANDEZ
--- OUTSIDE RECORDS SUMMARY | 2024-10-11 21:14 | XMS_ITS ---
Author Name [facility] [place] Organization [place] Address [address] [place] [address] Care Team Providers Care Procurement Assistant Name Role Phone OSIEL ROACH Primary Care [...] Name Patient's Relationship to Policy Blankenship CAN [employer] CT FEDERAL PREFERRED PROVIDER ORGANIZAT ION (PPO) BASIC FAMIL Y Aug 11, 2010 [id number] [phone] DONA BRADLEY PATIENT BCBS [place] FEP PREFERRED PROVIDER ORGANIZAT ION (PPO) BASIC FAMIL Y Aug 11, 2010 [id number] DONA BRADLEY PATIENT [employer] FEPRX PLAN PRESCRIPT ION CAREM ARK FEPRX Aug 11, 2010 [id number] DONA BRADLEY PATIENT [employer]-F EP BCBS PRESCRIPT ION FEP CAREM ARK Aug 11, 2010 [id number] MIRNADONA Watson PATIENT Selected Encounter This section includes the information on record at [place] for the Encounter. Date/Time Encounter Type Encounter Description Reason Pro vider Source Oct 06, 2024 02:10 PM Outpatient Encounter PRIMARY CARE/MEDICINE [facility] Encounter Template Text not used by [place] Plan of Treatment: Future Appointments (+ 6 months) and Future Tests (+/- 45 days) The Plan of Treatment section includes future care activities for the patient from all [place] [facility]. This section includes future appointments and future orders which are active, pending or scheduled. Future Appointments This section includes appointments that were scheduled to occur 6 months from the date of the Encounter, up to a maximum of 20 appointments. The data comes from all [facility]. Appointment Date/Time Appointment Type Appointme nt Facility Name Oct 13, 2024 02:30 PM AMBULATORY - MEDICINE [facility] Nov 11, 2024 11:00 AM AMBULATORY MEDICINE [facility] December 13, 2024 02:00 PM AMBULATORY MEDICINE [facility] Active, Pending, and Scheduled Orders This section includes a listing of several types of active, pending, and scheduled orders, including clinic medications orders, diagnostic test orders, procedure orders and consult orders; where the start date of the order is 45 days before the date of the Encounter or 45 days after the date of theEncounter. The data comes from all [facility]. Test Date/Time Test Type Test Details Facility Name Aug 25, 2024 12:00 AM Laboratory - Chemi stry Order OCCULT BLOOD FIT X1 SCREEN (MFP ONLY) STOOL FECES SP [facility] Oct 06, 2024 01:54 PM Laboratory - Chemi stry Order ISLET CELL Ab SCREEN w/REFLEX TO TITER BLOOD (SST-SERUM) SP [facility] Oct 13, 2024 12:00 AM Laboratory - Chemi stry Order THYROID T4 FREE(FT4) (WROX) BLOOD (SST-SERUM) SP [facility] Oct 13, 2024 12:00 AM Laboratory - Chemi stry Order TSH BLOOD (SST-SERUM) [facility] Lab Results: +/- 30 days of the encounter This section includes the Chemistry and Hematology Lab Results on record with [place] for the patient. Radiology Reports and Pathology Reports are provided separately, in subsequent sections. Lab Results This section contains the Chemistry/Hematology Results that were resulted 30 days before or 30 daysafter the date of the Encounter. Date/Time Source Result Type Result - Unit Interpretation Reference Range Comment Oct 06, 2024 01:54 PM [facility] FAITH-65 Ab (Quest) Specimen Type: SERUM Comment: REFERENCE RANGE: <5 IU/mL This test was performed using the GAD65 NALDO method, which is standardized against the International reference preparation 97/550. Test Performed by [facility], [facility], [address] [place] [address] Tre Bahena M.D., Ph.D., Director of Laboratories , CLIA [id number] TEST PERFORMED AT: , Ordering Provider: NEISHA FLORES Report Released Date/Time: Jul 15, 2024 01:43 PM Reporting Lab: [address] [address] Performing Lab: [facility] [address] [address] FAITH-65 Ab ([facility]) <5 [IU]/mL SEE BELOW Oct 06, 2024 01:54 PM [facility] THYROID T4 FREE(FT4) (WROX) Specimen Type: SERUM No comment entered. Ordering Provider: NEISHA FLORES Report Released Date/Time: Jul 15, 2024 01:44 PM Reporting Lab: [facility] [address] [facility] [address] Performing Lab: [facility] [address] [facility] [address] THYROID T4 FREE(FT4) (WROX) 2.44 ng/dL H 0.6-1.6 Oct 06, 2024 01:54 PM [facility] VITAMIN B12 Specimen Type: SERUM No comment entered. Ordering Provider: NEISHA FLORES Report Released Date/Time: Jul 15, 2024 01:44 PM Reporting Lab: [facility] [address] [facility] [address] Performing Lab: [facility] [place] [facility] [address] [facility] [facility] [address] VITAMIN B12 373 pg/mL 200-900 Oct 06, 2024 01:54 PM [place] [facility] TR[facility] TSH Specimen Type: SERUM No comment entered. Ordering Provider: NEISHA FLORES Released Date/Time: Jul 15, 2024 01:44 PM Reporting Lab: [facility] [address] [facility] [facility] [address] Performing Lab: [facility] [address] [facility] [address] TSH <0.06 u[IU]/mL L 0.35-5.00 Social History: Smoking Status (Most current) and Tobacco Use (All prior to encounter date) This section includes the most current, and the historical, smoking and tobacco- related health factors from the [place] facility where the Encounter took place. Current Smoking Status This section includes the most current smoking, or tobacco-related health factor, from the [place] facility where the Encounter took place. Date/Time Current Smoking Status Comment Jose laura Jun 02, 2023 11:40 AM [place]-TOBACCO NEVER USED [facility] Tobacco Use History This section includes a history of the smoking, or tobacco-related health factors, that were collected on or before the date of the Encounter. The data comes from the [place] facility where the Encounter took place. Date/Time Smoking Status/Tobacco Use Comment F leora December 11, 2021 03:10 PM [place]-TOBACCO NEVER USED [facility] Encounter Notes: All associated encounter notes This section contains the clinical notes associated to the Encounter. Date/Time Encounter Note(s) Provider Source Oct 06, 2024 02:10 PM PRIMARY CARE NOTE: LOCAL TITLE: WALK-IN NOTE PRIMARY CARE (T) STANDARD TITLE: PRIMARY CARE NOTE DATE OF NOTE: OCT 06, 2024@14:10 ENTRY DATE: OCT 06, 2024@14:10:37 AUTHOR: BRANDEE FERNANDEZ COSIGNER: URGENCY: STATUS: COMPLETED WALK-IN NOTE PRIMARY CARE (T) Has ADDENDA <====Click to Start Advanced Medical Support Davis presents to the Primary Care clinic with the following request: [ ]Medication Renewal/Refill [ ]Consultation with Team RN [ ]Symptoms [ X ]Other The states they are: [ ]Waiting [ X ]Not Waiting No Walk in visit scheduled with PACT Nurse [ X ] At this encounter the Davis's demographics were verified. [ X ] At this encounter the 's Insurance information was verified. [ X ] At this encounter the below scheduled visits for the Davis were discussed and appointment reminder card was offered. Future appointments: 10/13/2024 14:30 [facility] ENDOCRINE MD 1 12/13/2024 14:00 SPR PACT 9 Nurse VESri WOULD LIKE TO SPEAK WITH YOU ABOUT THE MOVE PROGRAM. /feliz/ BRANDEE MORA Signed: 10/06/2024 14:11 Receipt Acknowledged By: 10/07/2024 14:38 /feliz/ LINO WARREN DIETITINURYS 10/07/2024 ADDENDUM STATUS: COMPLETED Called and discussed the MOVE program. MOVE consult was resubmitted. Thank you, /feliz/ LION HINKLE STAFF DIETITIAN Signed: 10/07/2024 14:44 BRANDEE FERNANDEZ
--- OUTSIDE RECORDS SUMMARY | 2024-10-11 21:15 | XMS_ITS | Encounter Summary ---
Author Name [facility] Address [address] [place] [address] Care Team Providers Care Ssis Architect Name Role Phone OSIEL ROACH Primary [...] Name Patient's Relationship to Policy Blankenship CAN [facility] FEDERAL PREFERRED PROVIDER ORGANIZAT ION (PPO) BASIC FAMIL Y Aug 11, 2010 [id number] [id number] DONA BRADLEY Walter PATIENT BCBS [place] FEP PREFERRED PROVIDER ORGANIZAT ION (PPO) BASIC FAMIL Y Aug 11, 2010 [id number] DONA BRADLEY Walter PATIENT [employer] FEPRX PLAN PRESCRIPT ION CAR[employer]K FEPRX Aug 11, 2010 [id number] DONA BRADLEY Walter PATIENT [employer]-F EP BCBS PRESCRIPT ION FEP CAREM ARK Aug 11, 2010 [id number] [phone] MIRNADONA Watson PATIENT Selected Encounter This section includes the information on record at [place] for the Encounter. Date/Time Encounter Type Encounter Description Reason Provider Source Sep 17, 2024 02:00 PM PSYTX W PT 45 MINUTES [facility] ICD-10-CM G89.29 Other chronic pain BEVERLEY MENARD IHAva Encounter Template Text not used by [place] Assessments - Encounter Diagnoses This section includes the primary and secondary diagnoses documented for the Encounter. Date/Time Primary/Secondary Diagnosis Diagnosis Name Provider Source Sep 20, 2024 09:47 AM PRIMARY Other chronic pain LEEANNA HERNANDEZ Plan of Treatment: Future Appointments (+ 6 months) and Future Tests (+/- 45 days) The Plan of Treatment section includes future care activities for the patient from all [place] [facility]. This section includes future appointments and future orders which are active, pending or scheduled. Future Appointments This section includes appointments that were scheduled to occur 6 months from the date of the Encounter, up to a maximum of 20 appointments. The data comes from all [facility]. Appointment Date/Time Appointment Type Appointme nt Facility Name Oct 06, 2024 02:00 PM AMBULATORY - MEDICINE [facility] Oct 13, 2024 02:30 PM AMBULATORY MEDICINE [facility] Nov 11, 2024 11:00 AM AMBULATORY - MEDICINE [facility] December 13, 2024 02:00 PM AMBULATORY MEDICINE [facility] Active, Pending, and Scheduled Orders This section includes a listing of several types of active, pending, and scheduled orders, including clinic medications orders, diagnostic test orders, procedure orders and consult orders; where the start date of the order is 45 days before the date of the Encounter or 45 days after the date of theEncounter. The data comes from all [facility]. Test Date/Time Test Type Test Details Facility Name Aug 13, 2024 12:40 PM Consult Order [facility]-SLEEP STUDY Cons It Program Auditor's Choice [facility] Aug 25, 2024 12:00 AM Laboratory - Chemi stry Order OCCULT BLOOD FIT X1 SCREEN (MFP ONLY) STOOL FECES SP [facility] Oct 06, 2024 01:54 PM Laboratory - Chemi stry Order ISLET CELL Ab SCREEN w/REFLEX TO TITER BLOOD (SST-SERUM) SP [facility] Oct 13, 2024 12:00 AM Laboratory - Chemi stry Order THYROID T4 FREE(FT4) (WROX) BLOOD (SST-SERUM) SP [facility] Oct 13, 2024 12:00 AM Laboratory - Chemi stry Order TSH BLOOD (SST-SERUM) [facility] Lab Results: +/- 30 days of the encounter This section includes the Chemistry and Hematology Lab Results on record with [place] for the patient. Radiology Reports and Pathology Reports are provided separately, in subsequent sections. Lab Results This section contains the Chemistry/Hematology Results that were resulted 30 days before or 30 daysafter the date of the Encounter. Date/Time Source Result Type Result - Unit Interpretation Reference Range Comment Oct 06, 2024 01:54 PM [facility] FAITH-65 Ab (Quest) Specimen Type: SERUM Comment: REFERENCE RANGE: <5 IU/mL This test was performed using the GAD65 NALDO method, which is standardized against the International reference preparation 97/550. Test Performed by [facility], [facility], [address] [place] [address] Tre Bahena M.D., Ph.D., Director of Laboratories , [facility] [id number] TEST PERFORMED AT: , Ordering Provider: NEISHA FLORES Report Released Date/Time: Jul 15, 2024 01:43 PM Reporting Lab: [address] [address] Performing Lab: [place] [id number] [address] FAITH-65 Ab (Quest) <5 [IU]/mL SEE BELOW Oct 06, 2024 01:54 PM [facility] THYROID T4 FREE(FT4) (WROX) Specimen Type: SERUM No comment entered. Ordering Provider: NEISHA FLORES Report Released Date/Time: Jul 15, 2024 01:44 PM Reporting Lab: [address] [address] Performing Lab: [facility] [address] [facility] [address] THYROID T4 FREE(FT4) (WROX) 2.44 ng/dL H 0.6-1.6 Oct 06, 2024 01:54 PM [facility] VITAMIN B12 Specimen Type: SERUM No comment entered. Ordering Provider: NEISHA FLORES Report Released Date/Time: Jul 15, 2024 01:44 PM Reporting Lab: [facility] [address] [facility] [address] Performing Lab: [facility] [address] [facility] [address] VITAMIN B12 373 pg/mL 200-900 Oct 06, 2024 01:54 PM [facility] TSH Specimen Type: SERUM No comment entered. Ordering Provider: NEISHA FLORES Report Released Date/Time: Jul 15, 2024 01:44 PM Reporting Lab: [facility] [address] [facility] [address] Performing Lab: [facility] [address] [facility] [address] TSH <0.06 u[IU]/mL L 0.35-5.00 Social History: Smoking Status (Most current) and Tobacco Use (All prior to encounter date) This section includes the most current, and the historical, smoking and tobacco- related health factors from the [place] facility where the Encounter took place. Current Smoking Status This section includes the most current smoking, or tobacco-related health factor, from the [place] facility where the Encounter took place. Date/Time Current Smoking Status Comment Jose laura May 03, 2024 02:00 PM [place]-TOBACCO NEVER USED [facility] Tobacco Use History This section includes a history of the smoking, or tobacco-related health factors, that were collected on or before the date of the Encounter. The data comes from the [place] facility where the Encounter took place. Date/Time Smoking Status/Tobacco Use Comment Samy corey Jan 10, 2021 10:30 AM [place]-TOBACCO NEVER USED [facility] Sep 09, 2017 09:25 AM LIFETIME NON-TOBACCO USER [facility] Jan 22, 2017 10:26 AM CURRENT SMOKER [place] 2-3 per yr [facility] Jan 22, 2017 10:26 AM V1-PT NOT INTEREST ED IN QUIT TOBACCO USE [facility] Sep 06, 2015 08:49 AM LIFETIME NON-TOBACCO USER [facility] Jan 13, 2009 11:22 AM LIFETIME NON-TOBACCO USER [facility] Encounter Notes: All associated encounter notes This section contains the clinical notes associated to the Encounter. Date/Time Encounter Note(s) Provider Source Sep 17, 2024 03:00 PM MENTAL HEALTH DIAG NOSTIC STUDY NOTE: LOCAL TITLE: MENTAL HEALTH DIAGNOSTIC STUDY STANDARD TITLE: MENTAL HEALTH DIAGNOSTIC STUDY NOTE DATE OF NOTE: SEP 17, 2024@15:00 ENTRY DATE: SEP 20, 2024@09:48:01 AUTHOR: LEEANNA HERNANDEZ EXP COSIGNER: BEVERLEY MENARD URGENCY: STATUS: COMPLETED WHYMPI Pain Interference Scale ([id number]) Date Given: 09/17/2024 Clinician: Leeanna Hernandez Location: [facility]/psych Manager Transfusion [place]: MirnaWayne Anderson SSN: [id number] : [birth year] ([birth year]) Gender: Male Pain Interference: 4.89 Pain interference scores range from 0 to 6 with higher scores reflecting greater interference. Question and Answers: 1. In general, how much does your pain problem interfere with your day to day activities? 5 2a. Are you retired from work for reasons other than your pain problem? No 2. Since the time you developed a pain problem, how much has your pain changed your ability to work? 5 3. How much has your pain changed the amount of satisfaction or enjoyment you get from participating in social and creational activities? 6 4. How much has your pain changed your ability to participate in recreational and other social activities? 6 5. How much has your pain changed the amount of satisfaction you get from family-related activities? 4 6. How much has your pain changed your marriage and other family relationships? 3 7a. Are you currently working? Yes 7. How much has your pain changed the amount of satisfaction or enjoyment you get from work? 6 8. How much has your pain changed your ability to do buckler and lacer? 6 9. How much has your pain changed your friendships with people other than your family? 3 Information contained in this note is based on a self-report assessment and is not sufficient to use alone for diagnostic purposes. Assessment results should be verified for accuracy and used in conjunction with other diagnostic activities. Copyright ? 1985, Johann Sanchez, Maurizio Koroma, and Kwame Hammonds World Health Organization: Quality of Life - BREF (WHOQOL-BREF) Date Given: 09/17/2024 Clinician: Leeanna Hernandez Location: [facility]/psych Manager Transfusion : Wayne Bradley SSN: [id number] : Mar (49) Gender: Male Higher scores indicate higher quality of life. Item/Domain Culbertson's Raw Score Transformed Score Item 1: Overall Quality of Life 3 N/A Item 2: General Health 2 N/A Satisfaction Domain 1: Physical Health 11 14 Domain 2: Psychological 14 33 Domain 3: Social relationships 11 67 Domain 4: Environment 30 69 Questions and Answers 1. How would you rate your quality of life? Neither poor nor good 2. How satisfied are you with your health? Dissatisfied 3. To what extent do you feel that physical pain prevents you from doing what you need to do? An extreme amount 4. How much do you need any medical treatment to function in your daily life? Very much 5. How much do you enjoy life? A moderate amount 6. To what extent do you feel your life to be meaningful? A moderate amount 7. How well are you able to concentrate? A little 8. How safe do you feel in your daily life? A moderate amount 9. How healthy is your physical environment? Very much 10. Do you have enough energy for everyday life? A little 11. Are you able to accept your bodily appearance? Not at all 12. Have you enough money to meet your needs? Mostly 13. How available to you is the information that you need in your day-to-day life? Completely 14. To what extent do you have the opportunity for leisure activities? Moderately 15. How well are you able to get around? Poor 16. How satisfied are you with your sleep? Very dissatisfied 17. How satisfied are you with your ability to perform your daily living activities? Dissatisfied 18. How satisfied are you with your capacity for work? Very dissatisfied 19. How satisfied are you with yourself? Dissatisfied 20. How satisfied are you with your personal relationships? Satisfied 21. How satisfied are you with your sex life? Neither satisfied nor dissatisfied 22. How satisfied are you with the support you get from your friends? Satisfied 23. How satisfied are you with the conditions of your living place? Satisfied 24. How satisfied are you with your access to health services? Neither satisfied nor dissatisfied 25. How satisfied are you with your transport? Satisfied 26. How often do you have negative feelings such as blue mood, despair, anxiety, depression? Quite often 27. Do you have any comments about the assessment? Type none or NA for no comment. Na Information contained in this note is based on a self-report assessment and is not sufficient to use alone for diagnostic purposes. Assessment results should be verified for accuracy and used in conjunction with other diagnostic activities. World Health Organization 2004 Pain Catastrophizing Scale (PCS) 1.I worry all the time about whether the pain will end. 3 2.I feel I can't go on. 1 3.It's terrible and I think it's never going to get any better. 3 4.It's awful and I feel that it overwhelms me. 3 5.I feel I can't stand it anymore. 1 6.I become afraid that the pain will get worse. 3 7.I keep thinking of other painful events. 1 8.I anxiously want the pain to go away. 3 9.I can't seem to keep it out of my mind. 2 10.I keep thinking about how much it hurts. 2 11.I keep thinking about how badly I want the pain to stop. 3 12.There's nothing I can do to reduce the intensity of the pain. 2 13.I wonder whether something serious may happen 4 /feliz/ LEEANNA HERNANDEZ MA Picker Box Operator Signed: 09/20/2024 09:49 /feliz/ BEVERLEY MENARD PSYD Clinical Psychologist Cosigned: 09/20/2024 15:12 LEEANNA HERNANDEZ [facility] Sep 17, 2024 03:00 PM MENTAL HEALTH NOTE : LOCAL TITLE: CBT CHRONIC PAIN THERAPY NOTE STANDARD TITLE: MENTAL HEALTH NOTE DATE OF NOTE: SEP 17, 2024@15:00 ENTRY DATE: SEP 20, 2024@09:26:41 AUTHOR: LEEANNA HERNANDEZ EXP COSIGNER: BEVERLEY MENARD URGENCY: STATUS: COMPLETED CBT CHRONIC PAIN THERAPY NOTE Has ADDENDA Cognitive Behavioral Therapy for Chronic Pain (CBT-CP): FINAL SESSION/DISCHARGE PLANNING Time in session (in minutes): 50 SESSION NUMBER: 10 SESSION FORMAT: [id number] session SESSION LOCATION (e.g., Outpatient , [facility], [facility], Inpatient Unit, Primary Care, etc.): SPO DIAGNOSIS: Primary (focus of treatment): Chronic Pain Secondary (if applicable): ASSESSMENT: SUDS Ratin This score is indicative of a low level of distress. Pain Catastrophizing Scale (PCS): 2.34 This score is indicative of a moderate level of pain catastrophizing. Multidimensional Pain Inventory Interference subscale (MPI-INT): 4.89 World Health Organization: Quality of Life - BREF (WHOQOL-BREF: Item/Domain Culbertson's Raw Score Transformed Score Item 1: Overall Quality of Life 3 N/A Item 2: General Health 2 N/A Satisfaction Domain 1: Physical Health 11 14 Domain 2: Psychological 14 33 Domain 3: Social relationships 11 67 Domain 4: Environment 30 69 MENTAL STATUS/BEHAVIORAL OBSERVATIONS (note any relevant mental status factors and/or behavioral observations): Appearance: well-groomed Orientation: person, place, date Relational pattern: normative Attention: focused Speech: clear Motor: normative Mood and affect: euthymic Thought process: linear Insight: fair Judgment: fair OTHER RELEVANT ASSESSMENT OBSERVATIONS (note any additional structured or clinical assessment information; e.g., cultural/spiritual influences, substance use, etc.):None BETWEEN SESSION PRACTICE ENGAGEMENT Culbertson's engagement with between session practice goals was: Moderate Culbertson implemented the following changes to sleep behavior: -taking trazadone nightly -use alpha-stim for 30 minutes before bed -use fan for white noise during night [place] Does Not require/desire a referral for CBT-I. SESSION CONTENT: The Culbertson completed the Discharge Planning session of Cognitive Behavioral Therapy for Chronic Pain (CBT-CP), which focuses on coping with pain flare-ups, anticipating obstacles in implementing skills, and developing a concrete plan for post-treatment. The following occurred during the session: Reviewed the agenda and asked if Culbertson had item(s) to add., Briefly reviewed previous session and asked if [place] needed any clarification., Reviewed progress has achieved during treatment., Helped identify and troubleshoot obstacles to continued use of pain coping skills with Anticipating Obstacles Worksheet and the use of the Weekly Activities Schedule. , Identified obstacles included: -work stress -missed appointments (medical) -family stress -not pacing Helped Culbertson create plan for coping with flare-ups., Helped Culbertson develop future goals. These future goals are: -Reduce weight via cardio exercise to the point of lifting weights -Access MOVE program once work schedule allows -Continue pacing for weekly activities REVIEW PROGRESS TOWARD TREATMENT GOALS: appears to have improved functioning based on the following (e.g., changes in assessment measure scores, behavioral observations, self-report, functioning): -Increased scores on quality of life: Social relationships & environment scores: (+17 and +19 respectively). -Decrease in WHYMPI Pain Interference scores: (-.44). -Decrease in Pain Catastrophizing Scale score: (-.97). endorsed increased ability to navigate weekly life events using pacing and checking ANTS. He reports more efficient and sufficient sleep by using alpha-stim and trazadone sleep medication which, in turn, helps with pain experience. Wayne shared several weekly coping activities including using lidocaine, resting in chair with leg heating pads, and enjoyable activities of spending time with/ driving with his . COLLABORATION The degree of collaboration between the and the therapist in the current session was: moderate Description of collaboration in this session: Discussion around long-term goals, goals met, highlights of skills learned. ADDITIONAL SESSION INFORMATION: Wayne presented to session to discuss summary of treatment and next steps. He highlighted his use of pacing and addressing negative thoughts and how they have helped him substantially. He shared that accepting where he is currently with his health and wellness has been a jumping off point for further fitness goals including exercise and diet changes. He agreed to reach out if he desires another session for CBT-CP. PLAN Additional notes regarding scheduling or plan: will reach out as needed. SUPERVISION: This case is supervised by Beverley Menard Psy.D, licensed psychologist. Diagnosis, treatment plan, and response to care are discussed in a standard weekly, 60 minute individual supervision meeting. /feliz/ LEEANNA HERNANDEZ MA Picker Box Operator Signed: 09/20/2024 09:50 /feliz/ BEVERLEY MENARD PSYD Clinical Psychologist Cosigned: 09/20/2024 15:14 09/20/2024 ADDENDUM STATUS: COMPLETED I have reviewed this case and concur with the clinical impressions and recommendations made by Leeanna Green, Picker Box Operator who is under my clinical supervision. /feliz/ BEVERLEY MENARD PSYD Clinical Psychologist Signed: 09/20/2024 15:14 09/21/2024 ADDENDUM STATUS: COMPLETED RISK INFORMATION (note any indication of SI/HI and any other relevant risk information; complete local template, if appropriate): No suicidal or homicidal ideation endorsed. /feliz/ LEEANNA HERNANDEZ MA Picker Box Operator Signed: 09/21/2024 15:38 /feliz/ BEVERLEY MENARD PSYD Clinical Psychologist Cosigned: 09/21/2024 15:52 LEEANNA HERNANDEZ
--- OUTSIDE RECORDS SUMMARY | 2024-10-11 21:15 | XMS_ITS | Encounter Summary ---
Author Name [facility] [place] [facility] Address [address] [place] [address] Care Team Providers Care Appointment Specialist Name Role Phone OSIEL ROACH Primary Care [...] BASIC FAMIL Y Aug 11, [phone] [id number] [phone] DONA BRADLEY PATIENT BCBS [place] FEP PREFERRED PROVIDER ORGANIZAT ION (PPO) BASIC FAMIL Y Aug 11, [phone] [id number] DONA BRADLEY PATIENT [employer] FEPRX PLAN PRESCRIPT ION CAREM ARK FEPRX Aug 11, 2010 [id number] DONA BRADLEY PATIENT [employer]-F EP BCBS PRESCRIPT ION FEP CAREM ARK Aug 11, 2010 [id number] [phone] DONA BRADLEY Walter PATIENT Selected Encounter This section includes the information on record at [place] for the Encounter. Date/Time Encounter Type Encounter Description Reason Pro vider Source Oct 06, 2024 02:00 PM Outpatient Encounter CLINICAL PHARMACY [facility] Encounter Template Text not used by [place] Plan of Treatment: Future Appointments (+ 6 months) and Future Tests (+/- 45 days) The Plan of Treatment section includes future care activities [facility] the [facility] This section includes future appointments and future orders which are active, pending or scheduled. Future Appointments This section includes appointments that were scheduled to occur 6 months from the date of the Encounter, up to a maximum of 20 appointments. The data comes from all [facility]. Appointment Date/Time Appointment Type Appointme nt Facility Name Oct 13, 2024 02:30 PM AMBULATORY - MEDICINE [facility] Nov 11, 2024 11:00 AM AMBULATORY MEDICINE [facility] December 13, 2024 02:00 PM AMBULATORY MEDICINE [facility] Active, Pending, and Scheduled Orders This section includes a listing of several types of active, pending, and scheduled orders, including clinic medications orders, diagnostic test orders, procedure orders and consult orders; where the start date of the order is 45 days before the date of the Encounter or 45 days after the date of theEncounter. The data comes from all [facility]. Test Date/Time Test Type Test Details Facility Name Aug 25, 2024 12:00 AM Laboratory - Chemi stry Order OCCULT BLOOD FIT X1 SCREEN (MFP ONLY) STOOL FECES [facility] Oct 06, 2024 01:54 PM Laboratory - Chemi stry Order ISLET CELL Ab SCREEN w/REFLEX TO TITER BLOOD (SST-SERUM) [facility] Oct 13, 2024 12:00 AM Laboratory - Chemi stry Order THYROID T4 FREE(FT4) (WROX) BLOOD (SST-SERUM) [facility] Oct 13, 2024 12:00 AM Laboratory - Chemi stry Order TSH BLOOD (SST-SERUM) [facility] Lab Results: +/- 30 days of the encounter This section includes the Chemistry and Hematology Lab Results on record with [place] for the patient. Radiology Reports and Pathology Reports are provided separately, in subsequent sections. Lab Results This section contains the Chemistry/Hematology Results that were resulted 30 days before or 30 daysafter the date of the Encounter. Date/Time Source Result Type Result - Unit Interpretation Reference Range Comment Oct 06, 2024 01:54 PM [facility] FAITH-65 Ab ([facility]) Specimen Type: SERUM Comment: REFERENCE RANGE: <5 IU/mL This test was performed using the GAD65 NALDO method, which is standardized against the International reference preparation 97/550. Test Performed by [facility], [address] [place] [address] Tre Bahena M.D., Ph.D., Director of Laboratories , CLIA [id number] TEST PERFORMED AT: , Ordering Provider: NEISHA FLORES Report Released Date/Time: Jul 15, 2024 01:43 PM Reporting Lab: [address] [address] Performing Lab: [facility] [address] [address] FAITH-65 Ab ([facility]) <5 [IU]/mL SEE BELOW Oct 06, 2024 01:54 PM [facility] THYROID T4 FREE(FT4) (WROX) Specimen Type: SERUM No comment entered. Ordering Provider: NEISHA FLORES Report Released Date/Time: Jul 15, 2024 01:44 PM Reporting Lab: [address] [address] Performing Lab: [facility] [address] [facility] [address] THYROID T4 FREE(FT4) (WROX) 2.44 ng/dL H 0.6-1.6 Oct 06, 2024 01:54 PM [facility] VITAMIN B12 Specimen Type: SERUM No comment entered. Ordering Provider: NEISHA FLORES Report Released Date/Time: Jul 15, 2024 01:44 PM Reporting Lab: [address] [address] Performing Lab: [facility] [address] [facility] [address] VITAMIN B12 373 pg/mL 200-900 Oct 06, 2024 01:54 PM [facility] TSH Specimen Type: SERUM No comment entered. Ordering Provider: NEISHA FLORES Report Released Date/Time: Jul 15, 2024 01:44 PM Reporting Lab: [address] [address] Performing Lab: [facility] [address] [facility] [address] TSH <0.06 u[IU]/mL L 0.35-5.00 Social History: Smoking Status (Most current) and Tobacco Use (All prior to encounter date) This section includes the most current, and the historical, smoking and tobacco- related health factors from the [place] facility where the Encounter took place. Current Smoking Status This section includes the most current smoking, or tobacco-related health factor, from the [place] facility where the Encounter took place. Date/Time Current Smoking Status Comment Jose laura May 03, 2024 02:00 PM [place]-TOBACCO NEVER USED [place] Tobacco Use History This section includes a history of the smoking, or tobacco-related health factors, that were collected on or before the date of the Encounter. The data comes from the [place] facility where the Encounter took place. Date/Time Smoking Status/Tobacco Use Comment F leora Jan 10, 2021 10:30 AM VA-TOBACCO NEVER USED [place] Sep 09, 2017 09:25 AM LIFETIME NON-TOBACCO USER [place] Jan 22, 2017 10:26 AM CURRENT SMOKER [place] 2-3 per yr [place] Jan 22, 2017 10:26 AM V1-PT NOT INTEREST ED IN QUIT TOBACCO USE [place] Sep 06, 2015 08:49 AM LIFETIME NON-TOBACCO USER [place] Jan 13, 2009 11:22 AM LIFETIME NON-TOBACCO USER [place] Encounter Notes: All associated encounter notes This section contains the clinical notes associated to the Encounter. Date/Time Encounter Note(s) Provider Source Oct 07, 2024 12:30 PM CLERICAL NOTE: LOCAL TITLE: APPOINTMENT NO SHOW STANDARD TITLE: CLERICAL NOTE DATE OF NOTE: OCT 07, 2024@12:30 ENTRY DATE: OCT 07, 2024@12:30:34 AUTHOR: TUNDE VAZQUEZ EXP COSIGNER: URGENCY: STATUS: COMPLETED APPOINTMENT NO SHOW Has ADDENDA Patient Name: ANNIE BRADLEY Patient SSN: [id number] Date and time of Appointment No show : 10/06/24 14:00 PATIENT PHONE - PHONE NUMBER [CELLULAR] - [phone] Patient's medical record was reviewed. Follow-up actions were determined and initiated: Please check/complete as applies: [X]Telephoned Directly [ ]Re-scheduled for next available appt [ ]Sent a N0-show letter ( must call for appointment) [ ]Other (Emergent/Overbook, etc.): Additional Comments: will ask msa to kindly contact pt adn offer to r/s appt ty spr pharm pact 2 Future Clinic Visits 10/13/2024 14:30 [facility] ENDOCRINE MD 1 12/13/2024 14:00 SPR PACT 9 /feliz/ TUNDE VAZQUEZ CLINICAL BEAD WRAPPER Signed: 10/07/2024 12:30 Receipt Acknowledged By: 10/08/2024 10:46 /feliz/ MARK MORA 10/08/2024 ADDENDUM STATUS: COMPLETED Director Of Market Research spoke with to reschedule appointment with provider. /feliz/ MARK MORA Signed: 10/08/2024 10:47 TUNDE VAZQUEZ
--- OUTSIDE RECORDS SUMMARY | 2024-10-11 21:15 | XMS_ITS | Clinical Summary ---
Author Organization [facility] Address [address] [place] [address] Care Team Providers Care Nurse Sane Name Role Phone Vasyl Sands MD Primary Care Provider Social History Tobacco Use Types Packs/Day Years Used Date Smoking Tobacco: Never Assessed Sex and Gender Information Value Date Recorded Sex Assigned at Not on file Legal Sex Male 5:25 AM EST Gender Identity Not on file Sexual Orientation Not on file Last Filed Vital Signs Vital Sign Reading Time Taken Comments Blood Pressure - - Pulse - - Temperature - - Respiratory Rate - - Oxygen Saturation - - Inhaled Oxygen Concentration - - Weight 136 kg (300 lb) 12/12/2023 11:16 AM EDT Height 180.3 cm (5' 11 ) 12/12/2023 11:16 AM EDT Body Mass Index 41.84 12/12/2023 11:16 AM EDT Plan of Treatment Health Maintenance Due Date Last Done Comments DTaP,Tdap,and Td Vaccines (1 - Tdap) 1992 Hepatitis B Vaccines (1 of 3 - 19+ 3-dose series) 1992 Pneumococcal Vaccine: 50+ Ye ars (1 of 1 - PCV) 2023 Zoster Vaccines (1 of 2) 2023 Cholesterol Screening (Lipid Panel) 04/05/2024 Colorectal Cancer Screening: Colonoscopy 04/05/2024 Depression Screening 04/05/2024 HIV Screening 04/05/2024 Hepatitis C Screening 04/05/2024 Social Influencers of Health Screening 04/05/2024 COVID-19 Vaccine ( - 2023-2 5 season) 2024 Influenza Vaccine (#1) 2024 HIB Vaccines Aged Out No longer eligi ble based on patient's age to complete this topic HPV Vaccines Aged Out No longer eligi ble based on patient's age to complete this topic Hepatitis A Vaccines Aged Out No long er eligible based on patient's age to complete this topic IPV Vaccines Aged Out No longer eligi ble based on patient's age to complete this topic MMR Vaccines Aged Out No longer eligi ble based on patient's age to complete this topic Meningococcal ACWY Vaccine Aged Out N o longer eligible based on patient's age to complete this topic Meningococcal B Vacine Aged Out No lo nger eligible based on patient's age to complete this topic Pneumococcal Vaccine: Pediat rics (0 to 5 Years) and At-Risk Patients (6 to 64 Years) Aged Out No longer eligible b ased on patient's age to complete this topic RSV Immunization Patients Un naomie 20 months Aged Out No longer eligible b ased on patient's age to complete this topic Varicella Vaccines Aged Out No longer eligible based on patient's age to complete this topic Care Teams Nurse Sane Relationship Specialty Start Date End Date Vasyl Sands MD PCP - General 05/18/09
== END ==
LOC: HO.SL 19:30
PROVIDERS: PCP Internal Medicine; Visit Provider Internal Medicine
DX: G47.33 Obstructive sleep apnea (adult) (pediatric) (principal)
CPT/HCPCS: 95810

== ENCOUNTER → 2024-10-11 19:30 | Outpatient (BNV) | payer OTHER, SELFPAY | PROVIDERS: Visit Provider Psychiatry & Neurology Neurology | DX: G47.33 Obstructive sleep apnea (adult) (pediatric) (principal) | CPT/HCPCS: 95810 ==